=== PATIENT | male | born 1960 | race Hispanic/Latino ===

== ENCOUNTER 2018-02-24 06:26 | Day surgery (SDC) | payer MEDICARE ==
[~2018-02-24 06:26] MED LIST: ANCEF/STERILE WATER 2 GM/20 ML 2 GM/20 ML SYRINGE IV NR; LACTATED RINGERS 1,000 ML IV SCH
[2018-02-24 07:07] LABS: Basophils # (Auto) 0.1 K/mm3 (0.0-0.1); Basophils % (Auto) 0.6 % (0.0-1.8); Eosinophils # (Auto) 0.4 K/mm3 (0.0-0.4); Eosinophils % (Auto) 3.4 % (0.0-4.3); Hematocrit 43.2 % (35.5-45.6); Hemoglobin 14.5 gm/dl (11.8-15.2); Lymphocytes # (Auto) 1.4 K/mm3 (1.2-5.4); Lymphocytes % (Auto) 13.2 % (13.4-35.0); Mean Corpuscular HGB Conc 34 % (32-34); Mean Corpuscular Volume 74 fl (84-94); Monocytes # (Auto) 0.9 K/mm3 (0.0-0.8); Monocytes % (Auto) 8.6 % (0.0-7.3); Platelet Count 260 K/mm3 (140-440); Red Blood Count 5.84 M/mm3 (3.65-5.03); Red Cell Distribution Width 19.7 % (13.2-15.2)
[2018-02-24 07:11] LABS: Mean Corpuscular Hemoglobin 25 pg (28-32)
[2018-02-24 07:17] LABS: INR 3.01 (0.87-1.13)
[2018-02-24 07:18] LABS: Partial Thromboplastin Time 53.2 Sec. (24.2-36.6)
[2018-02-24] MEDS ORDERED: PERCOCET 5/325 ONE (08:02)
[2018-02-24] MEDS ORDERED: HEPARIN 10,000 UNITS/10 ML ONE (08:14)
[2018-02-24] MEDS ORDERED: XYLOCAINE 2% INFILTRATI ONE (08:14)
[2018-02-24] MEDS ORDERED: HEPARIN/NS 5000 UNIT/500ML(CATH LAB) 1,500 ML IR ONE (08:14)
[2018-02-24] MEDS ORDERED: ANCEF/STERILE WATER 2 GM/20 ML 2 GM/20 ML SYRINGE IV ONE (08:15)
[2018-02-24 08:23] LABS: BUN/Creatinine Ratio 15; Blood Urea Nitrogen 12 mg/dL (9-20); Hemolysis Index 4
[2018-02-24] MEDS ORDERED: PERCOCET 5/325 PO ONE (08:30)
[2018-02-24] MEDS ORDERED: NACL 0.9% 500 ML 500 ML ONE (09:03)
[2018-02-24] MEDS: SUBLIMAZE ONE ×2 (09:31→09:37)
[2018-02-24] MEDS: VERSED ONE ×2 (09:31→09:37)
--- NOTE | 2018-02-24 10:33 | Short Stay Summary ---
Short Stay Documentation Date of service: 02/24/18 Narrative H&P: Attached. 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 - History Principal diagnosis: Nonhealing ulcers, venous compression, post thrombotic syndrome H&P: obtained from office - Allergies and Medications Current Medications: Allergies bacitracin [From Neosporin ([id number])] Adverse Reaction (Verified 02/24/18 07:55) Hives morphine Adverse Reaction (Verified 02/24/18 07:55) Dizziness pt becomes combative neomycin [From Neosporin ([id number])] Adverse Reaction (Verified 02/24/18 07 :55) Hives polymyxin B [From Neosporin ([id number])] Adverse Reaction (Verified 07:55) Hives Home Medications Medication Instructions Recorded Confirmed Last Taken Type Aspirin [Lo-Dose Aspirin EC] 81 mg PO DAILY 02/24/18 02/24/18 02/23/18 22:00 History AtorvaSTATin [Lipitor] 40 mg PO QHS 02/24/18 02/24/18 02/23/18 22:00 History Cilostazol [Pletal] 50 mg PO BID 02/24/18 02/24/18 02/23/18 History Oxycodone HCl [Roxicodone TAB] 15 mg PO TID 02/24/18 02/24/18 02/23/18 22:00 History Sertraline [Zoloft] 50 mg PO DAILY 02/24/18 02/24/18 02/23/18 History Warfarin Sodium 10 mg PO DAILY 02/24/18 02/24/18 02/23/18 22:00 History Active Medications Cefazolin Sodium (Ancef/Sterile Water 2 Gm/20 Ml) 2 gm in 20 mls @ 80 mls/hr IV PREOP NR; Protocol Stop: 02/24/18 23:45 Last Admin: 02/24/18 09:33 Dose: 20 mls Lactated Ringer's (Lactated Ringers) 1,000 mls @ 42 mls/hr IV DIRECT LUPE - Physical exam General appearance: mild distress (bilateral foot ulcers) HEENT: EOMI Lungs: Normal air movement Heart: Regular rate Gastrointestinal: normal - Brief post op/procedure progress note Date of procedure: 02/24/18 Pre-op diagnosis: Venous compression, chronic deep venous thrombosis, nonhealing ulcers Post-op diagnosis: same Procedure: Venography of the right lower extremity Angioplasty of the right popliteal vein with a 7 mm angioplasty balloon Angioplasty of the right popliteal vein and tibioperoneal vein trunk with a 6 mm angioplasty balloon Angioplasty of the right superficial femoral vein with a 9 mm angioplasty balloon Anesthesia: local (w/ conscious sedation) Surgeon: HELENA FERGUSON Estimated blood loss: minimal Condition: stable - Hospital course Hospital course: Ready for discharge. Remove pressure dressing tomorrow am. can be discharged in 2 hrs. - Disposition Condition at discharge: Stable Disposition: [id number] TO HOME OR SELFCARE - Discharge Diagnoses (1) Post-thrombotic syndrome of right lower extremity Status: Acute (2) Compression of vein Status: Acute (3) Nonhealing ulcer of right lower extremity Status: Acute Short Stay Discharge Plan Activity: advance as tolerated (do not lift more than 10 lbs for 1 week) Weight Bearing Status: Weight Bear as Tolerated Diet: regular Wound: keep clean and dry, other (take pressure dressing off of the right groin tomorrow am) Follow up with: NICO BEST MD [Primary Care Provider] - 7 Days
--- NOTE | 2018-02-24 10:35 | Operative Report ---
Operative Report Operative Report: EXAM: 1. Ultrasound-guided access of the right superficial femoral vein, retrograde. 2. Venography of the right lower extremity and IVC. 3. Selection of the right popliteal vein. 4. Angioplasty of the right popliteal vein with a 7 mm x 200 mm angioplasty balloon. 5. Selection of the right popliteal vein and tibioperoneal trunk. 6. Angioplasty of the right popliteal vein and tibioperoneal trunk with a 6 mm x 80 mm angioplasty balloon. 7. Angioplasty of the right superficial femoral vein with a 9 mm x 60 mm angioplasty balloon. DATE: 02/24/18 ENGINE ROOM HELPER: HELENA FERGUSON MD INDICATION: D7-year-old male with nonhealing ulcer of the right lower extremity and chronic right lower extremity deep venous thrombosis and post-thrombotic syndrome with signs of possible venous compression and worsening mixed venous and arterial ulcer. MEDICATIONS: Please see nursing report for full details. DEVICES: 7 mm x 200 mm angioplasty below 9 mm x 60 mm angioplasty balloon 6 mm x 80 mm angioplasty balloon CONTRAST: 110 mL's nonionic contrast PROCEDURE: The risks, benefits, and alternatives were discussed with the patient; written informed consent was obtained. Groins were prepped and draped in a sterile fashion. Ultrasound was used to terrified a right superficial femoral vein. Right superficial femoral vein was patent. Under direct ultrasound guidance, the right superficial femoral vein was accessed with a 21-gauge micropuncture needle and a retrograde direction. 0.018 inch wire was passed into the superficial femoral vein. Transitional dilator was advanced over the wire and digital subtraction angiography was performed confirming position. 0.035 inch wire was passed into the superficial femoral vein and the transitional dilator was exchanged for a 5 Dutch sheath. Sheath was then upsized to a 7 Dutch 23 cm [place] destination. Right popliteal vein was selected and digital subtraction angiography was performed demonstrating mild intermittent narrowing of the superficial femoral vein with a web noted in the vein in the midportion. The common femoral vein was patent. The external iliac and common iliac veins were patent. IVC was patent. The right popliteal vein was moderately narrowed at the mid and upper portion and had multiple veins providing the lower portion of the popliteal vein. The largest branch to the popliteal vein provided flow into what appeared to be a branch of the right anterior tibial vein. The right anterior tibial vein was selected and visual subject angiography was performed demonstrating moderate narrowing throughout the vein. 7 mm x 200 mm angioplasty balloon that she is to perform angioplasty of the popliteal vein and into the anterior tibial vein. This is performed at low pressure for 3 minutes. Afterwards, there is extensive spasm of the vein. I injected some heparinized saline and then selected a separate branch from the right popliteal vein. This communicated with the tibioperoneal trunk. 6 mm x 80 mm angioplasty balloon was then used to perform angioplasty of the right tibial peroneal trunk and the right popliteal vein branch, both of which were severely narrowed, greater than 75%. Digital subtraction angiography afterwards demonstrated less than 40% of the narrowing and the vein was slightly spasm. Heparinized saline was injected. I then re-selected the previous branch which connected to the anterior tibial artery and the spasm was already improving. 9 mm x 60 mm angioplasty balloon was then used to perform angioplasty of the superficial femoral vein throughout its course. Digital subtraction angiography was performed demonstrating minimal residual narrowing of the lower portion of the superficial femoral vein with the web in the midportion of the vein still noted. At this point, all wires, catheters, and she's removed and pressure was held until hemostasis was achieved. Pressure bandage applied. FINDINGS: Please see procedure note above. IMPRESSION: 1. Successful angioplasty of the right popliteal vein, tibioperoneal trunk, anterior tibial vein, and superficial femoral vein.
[2018-02-24 13:13] VITALS: BP 145/58
== END 2018-02-24 13:30 | disposition home or self-care (01) ==
LOC: CATHLABREC 06:26
PROVIDERS: ATTEND Radiology Diagnostic Radiology
DX: I87.1 Compression of vein (principal); I70.233 Atherosclerosis of native arteries of right leg with ulceration of ankle; L97.919 Non-pressure chronic ulcer of unspecified part of right lower leg with unspecified severity; I25.2 Old myocardial infarction; E78.00 Pure hypercholesterolemia, unspecified; G47.30 Sleep apnea, unspecified; F32.9 Major depressive disorder, single episode, unspecified; F17.210 Nicotine dependence, cigarettes, uncomplicated; Z95.1 Presence of aortocoronary bypass graft; Z86.718 Personal history of other venous thrombosis and embolism; Z90.49 Acquired absence of other specified parts of digestive tract; Z98.890 Other specified postprocedural states; Z88.8 Allergy status to other drugs, medicaments and biological substances; Z79.82 Long term (current) use of aspirin; Z79.899 Other long term (current) drug therapy; Z79.01 Long term (current) use of anticoagulants
CPT/HCPCS: 36415; 37248; 37249; 75820; 75825; 80048; 85025; 85610; 85730; C1725; C1751; C1769; C1887; C1894; J0690; J1644; J2250; J3010; J7040; J7120; 76937; Q9967

== ENCOUNTER 2020-08-05 16:06 | Inpatient (IN) | payer MEDICARE ==
[2020-08-05 16:48] LABS: Basophils % (Auto) 0.6 % (0.0-1.8); Eosinophils # (Auto) 0.1 K/mm3 (0.0-0.4); Hematocrit 46.1 % (35.5-45.6); Hemoglobin 15.2 gm/dl (11.8-15.2); Lymphocytes # (Auto) 1.6 K/mm3 (1.2-5.4); Mean Corpuscular HGB Conc 33 % (32-34); Mean Corpuscular Volume 80 fl (84-94); Monocytes # (Auto) 0.5 K/mm3 (0.0-0.8); Monocytes % (Auto) 6.3 % (0.0-7.3); Platelet Count 336 K/mm3 (140-440); Red Blood Count 5.79 M/mm3 (3.65-5.03); Red Cell Distribution Width 17.7 % (13.2-15.2)
[2020-08-05 16:58] LABS: INR 0.94 (0.87-1.13)
[2020-08-05 16:59] LABS: Partial Thromboplastin Time 25.7 Sec. (24.2-36.6)
[2020-08-05] MEDS ORDERED: HYDROmorphone 1 MG/1 ML INJ IV ONE (17:02)
[2020-08-05] MEDS ORDERED: ONDANSETRON 4 MG/2 ML INJ IV ONE (17:02)
[2020-08-05 17:03] LABS: BUN/Creatinine Ratio 12; Blood Urea Nitrogen 11 mg/dL (9-20); Hemolysis Index 0
[2020-08-05] MEDS ORDERED: HEPARIN 10,000 UNITS/10 ML VIAL IV ONE (17:07)
--- NOTE | 2020-08-05 17:19 | Emergency Department Report ---
ED Extremity Problem HPI - General Chief complaint: Extremity Problem,Nontraumatic Stated complaint: BLOOD CLOT Time Seen by Provider: 08/05/20 16:18 Source: patient Mode of arrival: Ambulatory Limitations: No Limitations - History of Present Illness Initial comments: 60-year-old male with a past medical history of CAD with stent placement, [place], DVT, Buerger's disease, continued nicotine/tobacco use, chronic pain syndrome currently on Percocet, acute occlusion of left SFA requiring anticoagulation and thrombectomy in 2019, currently on Eliquis and Plavix presents to the hospital with complaints of arterial occlusion of left leg. Patient has been having throbbing and burning pain to his left foot for the last 3 days. He saw his vascular surgeon Dr. Sánchez in the office today. Arterial duplex was performed demonstrating thrombus extending from the origin of the superficial femoral artery distally. The profunda is patent. Patient was sent to the ER to be started on a heparin drip with plan for thrombolytic catheter placement tomorrow and potential additional revascularization on the . Patient's paperwork from Dr. Sánchez's office visits has been photocopied and placed on the chart (with patient's permission) Severity scale (0 -10): 8 - Related Data Home Medications Medication Instructions Recorded Confirmed Last Taken Sertraline [Zoloft] 50 mg PO QDAY 02/24/18 03/06/19 03/05/19 Gabapentin [Neurontin] 800 mg PO TID 03/06/19 03/06/19 Unknown Oxycodone HCl [oxyCODONE] 10 mg PO Q8H 03/06/19 03/06/19 03/05/19 fentaNYL [Duragesic] 25 mcg TD Q72H 03/06/19 03/06/19 Unknown Previous Rx's Medication Instructions Recorded Last Taken Type Apixaban [Eliquis] 5 mg PO BID #60 tablet 03/08/19 Unknown Rx Clopidogrel [Plavix] 75 mg PO QDAY #30 tablet 03/08/19 Unknown Rx Esomeprazole Magnesium [NexIUM] 40 mg PO QDAY #30 capsule. 03/08/19 Unknown Rx cilostazoL [Pletal] 100 mg PO BID #60 tablet 03/08/19 Unknown Rx Allergies Allergy/AdvReac Type Severity Reaction Status Date / Time bacitracin AdvReac Hives Verified 02/24/18 07:55 [From Neosporin ([id number])] morphine AdvReac Dizziness Verified 02/24/18 07:55 neomycin AdvReac Hives Verified 02/24/18 07:55 [From Neosporin ([id number])] polymyxin B AdvReac Hives Verified 02/24/18 07:55 [From Neosporin ([id number])] ED Review of Systems ROS: Stated complaint: BLOOD CLOT Other details as noted in HPI Comment: All other systems reviewed and negative ED Past Medical Hx - Past Medical History Previous Medical History?: Yes Hx Heart Attack/AMI: Yes (1999) Hx Deep Vein Thrombosis: Yes Hx Arthritis: No Hx HIV: No - Surgical History Past Surgical History?: Yes Hx Coronary Stent: Yes (coronary stents) Hx Cholecystectomy: Yes - Social History Smoking Status: Current Every Day Smoker - Medications Home Medications: Home Medications Medication Instructions Recorded Confirmed Last Taken Type Sertraline [Zoloft] 50 mg PO QDAY 02/24/18 03/06/19 03/05/19 History Gabapentin [Neurontin] 800 mg PO TID 03/06/19 03/06/19 Unknown History Oxycodone HCl [oxyCODONE] 10 mg PO Q8H 03/06/19 03/06/19 03/05/19 History fentaNYL [Duragesic] 25 mcg TD Q72H 03/06/19 03/06/19 Unknown History Apixaban [Eliquis] 5 mg PO BID #60 tablet 03/08/19 Unknown Rx Clopidogrel [Plavix] 75 mg PO QDAY #30 tablet 03/08/19 Unknown Rx Esomeprazole Magnesium [NexIUM] 40 mg PO QDAY #30 capsule.dr 03/08/19 Unknown Rx cilostazoL [Pletal] 100 mg PO BID #60 tablet 03/08/19 Unknown Rx ED Physical Exam - General Limitations: No Limitations - Other Other exam information: General: No acute distress Head: Atraumatic Eyes: normal appearance ENT: Moist mucous membranes Neck: Normal appearance, no midline tenderness Chest: Clear to auscultation bilaterally CV: Regular rate and rhythm Abdomen: Soft, normal bowel sounds, nontender, nondistended, no rebound or guarding Back: Normal inspection Extremity: Left foot metacarpal amputation. Warm to touch. Mild tenderness with palpation. Right lower leg with Unna boot secondary to chronic ulcer Neuro: Alert O x 3, no facial asymmetry, speech clear, no gross motor sensory deficit Psych: Appropriate behavior ED Course Vital Signs 08/05/20 08/05/20 16:13 17:12 Temperature 97.8 F 97.9 F Pulse Rate 63 65 Respiratory 20 18 Rate Blood Pressure 146/90 Blood Pressure 114/61 [Right] O2 Sat by Pulse 98 95 Oximetry - Consultations Consultation #1: 08/05/20 17:14 case d/w Dr Millan vascular surgeon. No further imaging recommended at this time. Heparin drip will be initiated patient will be admitted to hospitalist service. ED Medical Decision Making - Lab Data Result diagrams: 08/05/20 16:32 08/05/20 16:32 Lab Results 08/05/20 08/05/20 08/05/20 Range/Units 16:32 16:32 16:32 WBC 7.2 (4.5-11.0) K/mm3 RBC 5.79 H (3.65-5.03) M/mm3 Hgb 15.2 (11.8-15.2) gm/dl Hct 46.1 H (35.5-45.6) % MCV 80 L (84-94) fl MCH 26 L (28-32) pg MCHC 33 (32-34) % RDW 17.7 H (13.2-15.2) % Plt Count 336 (140-440) K/mm3 Lymph % (Auto) 22.0 (13.4-35.0) % [place] % (Auto) 6.3 (0.0-7.3) % Eos % (Auto) 1.0 (0.0-4.3) % Baso % (Auto) 0.6 (0.0-1.8) % Lymph # (Auto) 1.6 (1.2-5.4) K/mm3 [place] # (Auto) 0.5 (0.0-0.8) K/mm3 Eos # (Auto) 0.1 (0.0-0.4) K/mm3 Baso # (Auto) 0.0 (0.0-0.1) K/mm3 Seg Neutrophils % 70.1 H (40.0-70.0) % Seg Neutrophils # 5.1 (1.8-7.7) K/mm3 PT 12.4 (12.2-14.9) Sec. INR 0.94 (0.87-1.13) APTT 25.7 (24.2-36.6) Sec. Sodium 136 L (137-145) mmol/L Potassium 4.0 (3.6-5.0) mmol/L Chloride 99.7 (98-107) mmol/L Carbon Dioxide 27 (22-30) mmol/L Anion Gap 13 mmol/L BUN 11 (9-20) mg/dL Creatinine 0.9 (0.8-1.3) mg/dL Estimated GFR > 60 ml/min BUN/Creatinine Ratio 12 % Glucose 143 H (75-100) mg/dL Calcium 9.0 (8.4-10.2) mg/dL Total Creatine Kinase 29 L (55-170) units/L - Medical Decision Making 60-year-old male with a past medical of PAD with continued tobacco holiday use with chronic anticoagulation antiplatelet use presents to the hospital with ac nenana occlusion of left SFA. Patient will be admitted to the hospital for heparinization, thrombectomy, and possible revascularization as planned by vascular surgeons. Heparin drip initiated in the ED. Pain medication provided. Hospitalist to admit patient to their service with vascular consultation Critical Care Time: No Critical care attestation.: If time is entered above; I have spent that time in minutes in the direct care of this critically ill patient, excluding procedure time. ED Disposition Clinical Impression: Acute occlusion of artery of lower extremity, Nonhealing ulcer of right lower e xtremity, Nicotine dependence, Collado disease, Anticoagulant long-term use Disposition: 09 OP ADMIT IP TO THIS HOSP Is pt being admited?: Yes Condition: Stable Time of Disposition: 17:45
[2020-08-05] MEDS: HEPARIN/ 0.45% NACL DRIP 25,000 UNIT/500 ML BAG IV SCH (17:27)
--- NOTE | 2020-08-05 17:31 | History and Physical Report ---
History of Present Illness Chief complaint: My leg hurts History of present illness: 60 YO Male with CAD S/P Stent Placement, [place], DVT, Beugers Disease, Nicotine Dependence, Chronic Pain Syndrome presents, Arterial Occlusion S/P Thrombectomy presents to ED for evaluation. Pt reports "My leg hurts". Pt states that he has experienced pain in his left leg over the past 3 days with progressively worsening symptoms over the same time frame. Pt was seen and evaluated by his vascular surgeons office today. Pt was found to have rest pain. Pt underwent Arterial duplex and was found to have Left SFA occlusion. Pt transported to [facility] via private vehicle. Pt seen and evaluated in ED and found to have LLE Arterial Occlusion. Vascular surgery team notified. Pt admitted to telemetry and initiated on heparin drip. Pt denies fever, chills, CP, Palpitations, NVD, Trauma, BRBPR, Productive cough, skin rash, or recent ill contacts. Prior admission on 03/06/19 reviewed. All listed medication reconciled at time of admission. Advanced care planning conducted in ED. Past History Past Medical History: acute [place], CAD, DVT, PVD, other (see HPI) Past Surgical History: cholecystectomy, Other (Cardiac stent placement) Social history: , smoking Family history: diabetes, hypertension Medications and Allergies Allergies Allergy/AdvReac Type Severity Reaction Status Date / Time bacitracin Allergy Hives Verified 08/05/20 17:57 [From Neosporin ([id number])] neomycin Allergy Hives Verified 08/05/20 17:57 [From Neosporin ([id number])] polymyxin B Allergy Hives Verified 08/05/20 17:57 [From Neosporin ([id number])] morphine AdvReac Dizziness Verified 02/24/18 07:55 Home Medications Medication Instructions Recorded Confirmed Last Taken Type Sertraline [Zoloft] 50 mg PO QDAY 02/24/18 03/06/19 03/05/19 History Gabapentin [Neurontin] 800 mg PO TID 03/06/19 03/06/19 Unknown History Oxycodone HCl [oxyCODONE] 10 mg PO Q8H 03/06/19 03/06/19 03/05/19 History fentaNYL [Duragesic] 25 mcg TD Q72H 03/06/19 03/06/19 Unknown History Apixaban [Eliquis] 5 mg PO BID #60 tablet 03/08/19 Unknown Rx Clopidogrel [Plavix] 75 mg PO QDAY #30 tablet 03/08/19 Unknown Rx Esomeprazole Magnesium [NexIUM] 40 mg PO QDAY #30 capsule. 03/08/19 Unknown Rx cilostazoL [Pletal] 100 mg PO BID #60 tablet 03/08/19 Unknown Rx Active Meds: Active Medications Heparin Sodium/Sodium Chloride (Heparin/ 0.45% Nacl-25,000 Unit/500 Ml) 25,000 unit in 500 mls @ 29 mls/hr IV TITR LUPE; Protocol Last Admin: 08/05/20 17:27 Dose: 1,450 units/hr, 29 mls/hr Documented by: Review of Systems Constitutional: no weight loss, no weight gain Ears, nose, mouth and throat: no ear pain, no tinnitis, no decreased hearing, no nose pain, no sinus pressure Cardiovascular: no chest pain, no palpitations, no edema, no syncope, no lightheadedness Respiratory: no cough, no excessive sputum, no hemoptysis, no shortness of breath Gastrointestinal: no nausea, no vomiting, no diarrhea, no constipation, no change in bowel habits Genitourinary Male: no hematuria, no flank pain, no discharge, no urinary frequency, no nocturia, no erectile dysfunction Rectal: no pain, no incontinence Musculoskeletal: no neck pain, no arm numbness/tingling, no low back pain Integumentary: no rash, no pruritis, no sores, no wounds, no jaundice Neurological: no transient paralysis, no paralysis, no weakness, no parathesias, no tingling Psychiatric: no anxiety, no memory loss, no sleep disturbances, no hypersomnia, no change in libido, no suicidal ideation Endocrine: no cold intolerance, no polyphagia, no excessive thirst, no polydipsia, no nocturia, no excessive sweating Hematologic/Lymphatic: no easy bruising, no easy bleeding Allergic/Immunologic: no urticaria, no wheezing Exam - Constitutional Vitals: Temp Pulse Resp BP Pulse Ox 97.9 F 65 18 114/61 95 08/05/20 17:12 08/05/20 17:12 08/05/20 17:12 08/05/20 17:12 08/05/20 17:12 General appearance: Present: no acute distress, well-nourished - EENT Eyes: Present: PERRL ENT: hearing intact, clear oral mucosa - Neck Neck: Present: supple, normal ROM - Respiratory Respiratory effort: normal Respiratory: bilateral: CTA - Cardiovascular Heart Sounds: Present: S1 & S2. Absent: rub, click - Extremities Extremities: pulses symmetrical, No edema Peripheral Pulses: abnormal (Diminished LLE) - Abdominal General gastrointestinal: Present: soft, non-tender, non-distended, normal bowel sounds Male genitourinary: Present: normal - Integumentary Integumentary: Present: clear, warm, dry - Musculoskeletal Musculoskeletal: gait normal, strength equal bilaterally - Psychiatric Psychiatric: appropriate mood/affect, intact judgment & insight - Neurologic Neurologic: CNII-XII intact, moves all extremities Results - Labs CBC & Chem 7: 08/05/20 16:32 08/05/20 16:32 Labs: Abnormal lab results 08/05/20 08/05/20 Range/Units 16:32 16:32 RBC 5.79 H (3.65-5.03) M/mm3 Hct 46.1 H (35.5-45.6) % MCV 80 L (84-94) fl MCH 26 L (28-32) pg RDW 17.7 H (13.2-15.2) % Seg Neutrophils % 70.1 H (40.0-70.0) % Sodium 136 L (137-145) mmol/L Glucose 143 H (75-100) mg/dL Total Creatine Kinase 29 L (55-170) units/L Assessment and Plan - Patient Problems (1) Acute occlusion of artery of lower extremity Current Visit: No Status: Acute Plan to address problem: Arterial doppler by Vascular surgery in the office, Therapeutic anticoagulation, surgical intervention as per surgical team. (2) Collado disease Current Visit: No Status: Acute Plan to address problem: supportive care, continue medical management. (3) History of DVT (deep vein thrombosis) Current Visit: No Status: Acute Plan to address problem: Continue therapeutic anticoagulation with heparin drip, supportive care. (4) Nicotine dependence Current Visit: No Status: Acute Qualifiers: Nicotine product type: cigarettes Substance use status: in withdrawal Qualified Code(s): F17.213 - Nicotine dependence, cigarettes, with withdrawal Plan to address problem: Smoking cessation counseling, supportive care, behavior change counseling, +15 minutes. (5) DVT prophylaxis Current Visit: No Status: Acute Plan to address problem: SCD to bilateral lower extremities while in bed, continue therapeutic anticoagulation. (6) Advance care planning Current Visit: Yes Status: Acute Plan to address problem: Disease education conducted, care plan discussed, diagnosis discussed, prognosis discussed, patient knowledges understanding and agreement with care plan, +30 minutes.
[2020-08-05] MEDS ORDERED: ONDANSETRON 4 MG/2 ML INJ IV PRN (17:46)
[2020-08-05] MEDS ORDERED: ACETAMINOPHEN 325 MG TAB PO PRN (17:46)
[2020-08-05] MEDS ORDERED: ALBUTEROL 2.5 MG/3 ML NEBU IH PRN (17:46)
[2020-08-05] MEDS ORDERED: HEPARIN/ 0.45% NACL DRIP 25,000 UNIT/500 ML BAG IV SCH (18:00)
[2020-08-05] MEDS ORDERED: NON-FORMULARY EACH (Oxycodone Hcl [Oxycodone] 10 MG Tablet) PO SCH (19:30)
[2020-08-05] MEDS ORDERED: NON-FORMULARY EACH (Gabapentin [Neurontin] 800 MG Tablet) PO SCH (20:00)
[2020-08-05] MEDS: oxyCODONE 5 MG TAB PO SCH (20:30)
[2020-08-05] MEDS: GABAPENTIN 400 MG CAP PO SCH (20:30)
[2020-08-05] MEDS: fentaNYL 25 MCG/HR PATCH 72HR TD SCH (20:35)
[2020-08-05] MEDS: CILOSTAZOL 100 MG TAB PO SCH (22:45)
[2020-08-06] MEDS ORDERED: HYDROmorphone 1 MG/1 ML INJ IV ONE (01:48)
[2020-08-06 05:22] LABS: Basophils % (Auto) 0.5 % (0.0-1.8); Eosinophils # (Auto) 0.2 K/mm3 (0.0-0.4); Eosinophils % (Auto) 2.3 % (0.0-4.3); Hemoglobin 14.2 gm/dl (11.8-15.2); Lymphocytes # (Auto) 2.3 K/mm3 (1.2-5.4); Lymphocytes % (Auto) 33.5 % (13.4-35.0); Mean Corpuscular HGB Conc 33 % (32-34); Mean Corpuscular Volume 80 fl (84-94); Monocytes # (Auto) 0.6 K/mm3 (0.0-0.8); Monocytes % (Auto) 8.1 % (0.0-7.3); Platelet Count 297 K/mm3 (140-440); Red Blood Count 5.38 M/mm3 (3.65-5.03); Red Cell Distribution Width 17.2 % (13.2-15.2)
[2020-08-06 05:29] LABS: BUN/Creatinine Ratio 13; Blood Urea Nitrogen 13 mg/dL (9-20); Calcium 8.6 mg/dL (8.4-10.2); Hemolysis Index 6
[2020-08-06] MEDS: oxyCODONE 5 MG TAB PO SCH ×3 (06:50→20:49)
[2020-08-06] MEDS ORDERED: HYDROmorphone 2 MG/1 ML INJ IV SCH (08:34)
[2020-08-06] MEDS: GABAPENTIN 400 MG CAP PO SCH ×3 (08:45→19:52)
[2020-08-06] MEDS ORDERED: NON-FORMULARY EACH (Esomeprazole Magnesium [Nexium] 40 MG Capsule.Dr) PO SCH (10:00)
[2020-08-06] MEDS: CILOSTAZOL 100 MG TAB PO SCH ×2 (10:00→21:49)
--- NOTE | 2020-08-06 11:03 | Progress Note ---
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 --History of DVT (deep vein thrombosis) Current Visit: No Status: Acute Plan to address problem: Continue therapeutic anticoagulation with heparin drip, supportive care. --Nicotine dependence Current Visit: No Status: Acute Plan to address problem: Smoking cessation counseling, supportive care, behavior change counseling, +15 minutes. --DVT prophylaxis Current Visit: No Status: Acute Plan to address problem: SCD to bilateral lower extremities while in bed, continue therapeutic anticoagulation. --Advance care planning Current Visit: Yes Status: Acute Plan to address problem: Full CODE STATUS, plan of care discussed in detail with the patient Closely monitor the patient and adjust management as needed Plan of care discussed with the patient's nurse and case home management supervisor recommendations noted and appreciated History Interval history: I have seen and examined the patient at the bedside Patient's chart and medications reviewed Patient with left saphenous artery occlusion Evaluated by vascular, and events revascularization Patient feels slightly better Vital signs noted Hospitalist Physical - Constitutional Vitals: Temp Pulse Resp BP Pulse Ox 98.1 F 75 18 102/59 93 08/06/20 07:26 08/06/20 07:26 08/06/20 07:26 08/06/20 08:39 08/06/20 07:26 General appearance: Present: no acute distress, well-nourished - EENT Eyes: Present: PERRL, EOM intact - Neck Neck: Present: supple, normal ROM - Respiratory Respiratory effort: normal Respiratory: bilateral: diminished, negative: rales, rhonchi, wheezing - Cardiovascular Rhythm: regular Heart Sounds: Present: S1 & S2 - Extremities Extremities: No edema, normal temperature - Abdominal General gastrointestinal: soft, non-tender, non-distended, normal bowel sounds - Integumentary Integumentary: Present: clear, warm - Psychiatric Psychiatric: appropriate mood/affect, cooperative - Neurologic Neurologic: CNII-XII intact, moves all extremities Results - Labs CBC & Chem 7: 08/06/20 14:30 08/06/20 14:30 Labs: Laboratory Last Values WBC 6.9 K/mm3 (4.5-11.0) 08/06/20 04:50 RBC 5.38 M/mm3 (3.65-5.03) H 08/06/20 04:50 Hgb 14.2 gm/dl (11.8-15.2) 08/06/20 04:50 Hct 43.0 % (35.5-45.6) 08/06/20 04:50 MCV 80 fl (84-94) L 08/06/20 04:50 MCH 27 pg (28-32) L 08/06/20 04:50 MCHC 33 % (32-34) 08/06/20 04:50 RDW 17.2 % (13.2-15.2) H 08/06/20 04:50 Plt Count 297 K/mm3 (140-440) 08/06/20 04:50 Lymph % (Auto) 33.5 % (13.4-35.0) 08/06/20 04:50 [place] % (Auto) 8.1 % (0.0-7.3) H 08/06/20 04:50 Eos % (Auto) 2.3 % (0.0-4.3) 08/06/20 04:50 Baso % (Auto) 0.5 % (0.0-1.8) 08/06/20 04:50 Lymph # (Auto) 2.3 K/mm3 (1.2-5.4) 08/06/20 04:50 [place] # (Auto) 0.6 K/mm3 (0.0-0.8) 08/06/20 04:50 Eos # (Auto) 0.2 K/mm3 (0.0-0.4) 08/06/20 04:50 Baso # (Auto) 0.0 K/mm3 (0.0-0.1) 08/06/20 04:50 Seg Neutrophils % 55.6 % (40.0-70.0) 08/06/20 04:50 Seg Neutrophils # 3.8 K/mm3 (1.8-7.7) 08/06/20 04:50 PT 12.4 Sec. (12.2-14.9) 08/05/20 16:32 INR 0.94 (0.87-1.13) 08/05/20 16:32 APTT 25.7 Sec. (24.2-36.6) 08/05/20 16:32 Heparin Anti-Xa Level 0.53 U.I./ml (0.3-0.7) 08/05/20 23:35 Sodium 138 mmol/L (137-145) 08/06/20 04:50 Potassium 3.9 mmol/L (3.6-5.0) 08/06/20 04:50 Chloride 100.8 mmol/L (98-107) 08/06/20 04:50 Carbon Dioxide 29 mmol/L (22-30) 08/06/20 04:50 Anion Gap 12 mmol/L 08/06/20 04:50 BUN 13 mg/dL (9-20) 08/06/20 04:50 Creatinine 1.0 mg/dL (0.8-1.3) 08/06/20 04:50 Estimated GFR > 60 ml/min 08/06/20 04:50 BUN/Creatinine Ratio 13 % 08/06/20 04:50 Glucose 95 mg/dL (75-100) 08/06/20 04:50 Calcium 8.6 mg/dL (8.4-10.2) 08/06/20 04:50 Total Creatine Kinase 29 units/L (55-170) L 08/05/20 16:32 Lopez/IV: Voiding Method Urinal Active Medications - Current Medications Current Medications: Generic Name Dose Route Start Last Admin Trade Name Freq PRN Reason Stop Dose Admin Acetaminophen 650 mg 08/05/20 17:46 Acetaminophen 325 Mg Tab PO Q4H PRN Pain MILD(1-3)/Fever >100.5/CRYSTAL Albuterol 2.5 mg 08/05/20 17:46 Albuterol 2.5 Mg/3 Ml Nebu IH Q4HRT PRN Shortness Of Breath Cilostazol 100 mg 08/05/20 22:00 08/05/20 22:45 Cilostazol 100 Mg Tab PO 100 mg BID LUPE Administration Fentanyl 25 mcg 08/05/20 20:00 08/05/20 20:35 Fentanyl 25 Mcg/Hr Patch 72hr TD 25 mcg Q72H LUPE Administration Gabapentin 800 mg 08/05/20 20:00 08/06/20 08:45 Gabapentin 400 Mg Cap PO 800 mg TID LUPE Administration Heparin Sodium/Sodium Chloride 25,000 unit in 500 mls @ 29 mls/hr 08/05/20 17:23 08/05/20 17:27 Heparin/ 0.45% Nacl-25,000 Unit/500 Ml IV 1,450 units/hr TITR LUPE 29 mls/hr Administration Protocol 1,450 UNITS/HR Ondansetron HCl 4 mg 08/05/20 17:46 Ondansetron 4 Mg/2 Ml Inj IV Q8H PRN Nausea And Vomiting Oxycodone HCl 10 mg 08/05/20 20:00 08/06/20 06:50 Oxycodone 5 Mg Tab PO 10 mg Q8H LUPE Administration Pantoprazole Sodium 40 mg 08/06/20 10:00 Pantoprazole 40 Mg Tab PO DAILY LUPE Sertraline HCl 50 mg 08/06/20 10:00 Sertraline 50 Mg Tab PO QDAY LUPE Sodium Chloride 10 ml 08/05/20 22:00 08/05/20 22:45 Sodium Chloride 0.9% 10 Ml Flush Syringe IV 10 ml BID LUPE Administration Sodium Chloride 10 ml 08/05/20 17:46 Sodium Chloride 0.9% 10 Ml Flush Syringe IV PRN PRN LINE FLUSH
[2020-08-06] MEDS: HEPARIN/ 0.45% NACL DRIP 25,000 UNIT/500 ML BAG IV SCH (11:41)
[2020-08-06] MEDS ORDERED: HYDROmorphone 1 MG/1 ML INJ IV NR (13:28)
[2020-08-06] MEDS ORDERED: HYDROmorphone 1 MG/1 ML INJ ONE ×2 (13:29→14:39)
[2020-08-06] MEDS ORDERED: SODIUM CHLORIDE 0.9% 1000 ML 1,000 ML SHEATH SCH (13:30)
[2020-08-06] MEDS ORDERED: SODIUM CHLORIDE 0.9% 1000 ML 1,000 ML IV SCH (13:30)
[2020-08-06] MEDS ORDERED: SODIUM CHLORIDE 0.9% 1000 ML 1,000 ML EKOSCLUMEN SCH (13:30)
--- NOTE | 2020-08-06 13:30 | Consultation ---
History of Present Illness - Reason for Consult Consult date: 08/06/20 Cold left leg Requesting physician: RASTA FERGUSON - History of Present Illness 60-year-old male with coronary artery disease status post stent placement for myocardial infarction, history of DVT, Buerger's disease with continued nicotine abuse, and chronic pain with history of left lower extremity arterial thrombosis status post thrombolysis and thrombectomy in 2019 who now presents with left lo wer extremity pain for the last 3 days. 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 Sensory function is minimally affected. [place] 2A. Patient was seen in the office and found to have an arterial occlusion of the left lower extremity. Patient has been compliant with his medication. Pt denies fever, chills, CP, Palpitations, NVD, Trauma, BRBPR, Productive cough, skin rash, or recent ill contacts. Past History Past Medical History: acute [place], CAD, DVT, PVD, other (see HPI) Past Surgical History: cholecystectomy, Other (Cardiac stent placement) Social history: , smoking Family history: diabetes, hypertension Medications and Allergies Allergies Allergy/AdvReac Type Severity Reaction Status Date / Time bacitracin Allergy Hives Verified 08/05/20 17:57 [From Neosporin ([id number])] neomycin Allergy Hives Verified 08/05/20 17:57 [From Neosporin ([id number])] polymyxin B Allergy Hives Verified 08/05/20 17:57 [From Neosporin ([id number])] morphine AdvReac Dizziness Verified 02/24/18 07:55 Home Medications Medication Instructions Recorded Confirmed Last Taken Type Sertraline [Zoloft] 50 mg PO QDAY 02/24/18 08/06/20 03/05/19 History Gabapentin [Neurontin] 800 mg PO TID 03/06/19 08/06/20 Unknown History Oxycodone HCl [oxyCODONE] 10 mg PO Q8H 03/06/19 08/06/20 03/05/19 History fentaNYL [Duragesic] 25 mcg TD Q72H 03/06/19 08/06/20 Unknown History Apixaban [Eliquis] 5 mg PO BID #60 tablet 03/08/19 08/06/20 Unknown Rx Clopidogrel [Plavix] 75 mg PO QDAY #30 tablet 03/08/19 08/06/20 Unknown Rx Esomeprazole Magnesium [NexIUM] 40 mg PO QDAY #30 capsule. 03/08/19 08/06/20 Unknown Rx cilostazoL [Pletal] 100 mg PO BID #60 tablet 03/08/19 08/06/20 Unknown Rx Active Meds: Active Medications Acetaminophen (Acetaminophen 325 Mg Tab) 650 mg PO Q4H PRN PRN Reason: Pain MILD(1-3)/Fever >100.5/CRYSTAL Albuterol (Albuterol 2.5 Mg/3 Ml Nebu) 2.5 mg IH Q4HRT PRN PRN Reason: Shortness Of Breath Cilostazol (Cilostazol 100 Mg Tab) 100 mg PO BID [facility] Last Admin: 08/05/20 22:45 Dose: 100 mg Documented by: Fentanyl (Fentanyl 25 Mcg/Hr Patch 72hr) 25 mcg TD Q72H [facility] Last Admin: 08/05/20 20:35 Dose: 25 mcg Documented by: Gabapentin (Gabapentin 400 Mg Cap) 800 mg PO TID [facility] Last Admin: 08/06/20 08:45 Dose: 800 mg Documented by: Hydromorphone HCl (Hydromorphone 1 Mg/1 Ml Inj) 1 mg IV ONCE ONE Stop: 08/06/20 13:29 Heparin Sodium/Sodium Chloride (Heparin/ 0.45% Nacl-25,000 Unit/500 Ml) 25,000 unit in 500 mls @ 29 mls/hr IV TITR [facility]; Protocol Last Admin: 08/06/20 11:41 Dose: 1,450 units/hr, 29 mls/hr Documented by: Sodium Chloride (Nacl 0.9% 500 Ml) 500 mls @ 50 mls/hr IV DIRECT LUPE Ondansetron HCl (Ondansetron 4 Mg/2 Ml Inj) 4 mg IV Q8H PRN PRN Reason: Nausea And Vomiting Oxycodone HCl (Oxycodone 5 Mg Tab) 10 mg PO Q8H [facility] Last Admin: 08/06/20 06:50 Dose: 10 mg Documented by: Pantoprazole Sodium (Pantoprazole 40 Mg Tab) 40 mg PO DAILY [facility] Sertraline HCl (Sertraline 50 Mg Tab) 50 mg PO QDAY [facility] Sodium Chloride (Sodium Chloride 0.9% 10 Ml Flush Syringe) 10 ml IV BID [facility] Last Admin: 08/06/20 11:43 Dose: 10 ml Documented by: Sodium Chloride (Sodium Chloride 0.9% 10 Ml Flush Syringe) 10 ml IV PRN PRN PRN Reason: LINE FLUSH Review of Systems All systems: negative (see HPI) Exam - Constitutional Vitals: Temp Pulse Resp BP Pulse Ox 98.1 F 75 18 102/59 93 08/06/20 07:26 08/06/20 07:26 08/06/20 07:26 08/06/20 08:39 08/06/20 07:26 General appearance: Present: mild distress (Left foot pain) - EENT Eyes: Present: EOM intact ENT: hearing intact - Neck Neck: Present: supple - Respiratory Respiratory effort: normal - Extremities Extremities: abnormal (Left foot has had an old TMA. The old amputation TMA site appears cool and is slightly mottled. The rest of the leg is warm. Patient has pain at the TMA site. No motor dysfunction. Minimal decrease in sensation of the TMA site. Right ankle has a chronic wound, but is warm and well perfused.) - Abdominal General gastrointestinal: Present: soft, non-tender - Psychiatric Psychiatric: appropriate mood/affect, cooperative Results - Labs CBC & Chem 7: 08/06/20 04:50 08/06/20 04:50 Labs: Abnormal lab results 08/05/20 08/05/20 08/06/20 Range/Units 16:32 16:32 04:50 RBC 5.79 H 5.38 H (3.65-5.03) M/mm3 Hct 46.1 H (35.5-45.6) % MCV 80 L 80 L (84-94) fl MCH 26 L 27 L (28-32) pg RDW 17.7 H 17.2 H (13.2-15.2) % [place] % (Auto) 8.1 H (0.0-7.3) % Seg Neutrophils % 70.1 H (40.0-70.0) % Sodium 136 L (137-145) mmol/L Glucose 143 H (75-100) mg/dL Total Creatine Kinase 29 L (55-170) units/L Assessment and Plan 60-year-old male with history of acute limb ischemia of the left lower extremity secondary to Buerger's with continued tobacco abuse who continues to smoke and now has developed acute limb ischemia of the left lower extremity, again. Last episode was in 2019. Discussed with patient that his continued smoking places him at high risk for limb loss whether or not thrombolysis/thrombectomy will be successful. Discussed catheter directed thrombolysis of the left lower extremity. Discussed subsequent thrombectomy. Discussed risks, benefits, and alternatives. Patient agrees with procedure. Plan for thrombolysis with return to [facility] tomorrow for possible further revascularization as needed.
[2020-08-06] MEDS ORDERED: ONDANSETRON 4 MG/2 ML INJ IV PRN (13:34)
[2020-08-06] MEDS ORDERED: ALTEPLASE 20 MG in SODIUM CHLORIDE 0.9% 500 ML 500 ML EKOSDLUMEN STA (13:37)
[2020-08-06] MEDS ORDERED: HEPARIN/NS 5000 UNIT/500ML 1,000 ML IR ONE (13:40)
[2020-08-06] MEDS ORDERED: LIDOCAINE 2%/EPINEPHRINE 1:100,000 VIAL (20 ML) INFILTRATI ONE (14:00)
[2020-08-06] MEDS ORDERED: SODIUM CHLORIDE 0.9% 500 ML 500 ML IV SCH (14:00)
[2020-08-06] MEDS ORDERED: HEPARIN/ 0.45% NACL DRIP 25,000 UNIT/500 ML BAG SHEATH SCH (14:00)
[2020-08-06] MEDS: fentaNYL 100 MCG/2 ML INJ ONE ×2 (14:19→14:32)
[2020-08-06] MEDS: MIDAZOLAM 2 MG/2 ML INJ ONE ×2 (14:20→15:55)
[2020-08-06] MEDS ORDERED: HEPARIN 10,000 UNITS/10 ML VIAL ONE (14:20)
[2020-08-06] MEDS ORDERED: WATER FOR INJ Sterile (PF) 10 ML ONE (14:20)
[2020-08-06] MEDS ORDERED: ALTEPLASE 2 MG INJ ONE ×2 (14:20→14:56)
[2020-08-06] MEDS ORDERED: LIDOCAINE (2%) 20 MG/1 ML VIAL 20 ML MDV INFILTRATI ONE (14:21)
[2020-08-06] MEDS ORDERED: ceFAZolin/Water 2 GM/20 ML 2 GM/20 ML SYRINGE IV ONE (14:34)
[2020-08-06] MEDS ORDERED: VERAPAMIL 5 MG/2 ML INJ ONE (14:54)
[2020-08-06] MEDS ORDERED: SODIUM CHLORIDE 0.9% 1000 ML 1,000 ML ONE (15:04)
--- NOTE | 2020-08-06 15:48 | Operative Report ---
Operative Report Operative Report: EXAM: 1. Ultrasound-guided access of the right common femoral artery. 2. Angiography of the right lower extremity. 3. Selection of the abdominal aorta with angiography. 4. Selection of the left external iliac artery, and profunda femoral artery with angiography of the left lower extremity. 5. Selection of the left superficial femoral artery, popliteal artery, and peroneal artery with angiography of the left lower extremity. 6. Infusion of 2 mg of TPA through the peroneal artery and 5 mg of verapamil through the peroneal artery. 7. Fluoroscopic guided placement of a EKOS 6 Fr x 50 cm thrombolysis catheter across the left superficial femoral artery, popliteal artery, and proximal peroneal artery. DATE: 08/06/2020 [employer]IN[employer] POULTRY: HELENA FERGUSON MD INDICATION: Acute limb ischemia of the left lower extremity, [place] 2A. MEDICATIONS: Please see nursing report for full details. DEVICES: 6 Fr x 50 cm EKOSthrombolysis catheter 6 mg of tPA CONTRAST: Please see catheter report for full details. PROCEDURE: The risks, benefits, and alternatives were discussed with the patient; written informed consent was obtained. Patient was brought to the room on an active heparin drip. The groins were prepped and draped in a sterile fashion. Ultrasound was used to evaluate the right common femoral artery. Under direct ultrasound guidance, the right common femoral artery was accessed with a 21-gauge micropuncture needle. 0.018 inch wire was passed into the aorta. Needle was exchanged for t ransitional dilator. Wire was exchanged for 0.035 inch wire. Transitional dilator was exchanged for 5 [place] sheath. Digital subtraction angiography was performed demonstrating patency of the right superficial femoral artery, profundofemoral artery, and common femoral artery. The puncture was appropriate, above the bifurcation and below the inferior epigastric artery. The abdominal aorta was selected and digital subtraction angiography was performed. The left external iliac artery and profunda femoral artery was selected and digital subtraction angiography was performed. The infrarenal abdominal aorta, bilateral common iliac arteries, bilateral external iliac arteries, and bilateral internal iliac arteries are patent. The left common femoral artery and profunda femoral artery are patent. There is occlusion of the left superficial femoral artery, popliteal artery, and proximal peroneal artery. There is no other runoff to the left lower extremity based on previous angiograms. The peroneal artery reconstitutes at its midportion with poor outflow due to underlying Buerger's. After reviewing the diagnostic imaging, I determined the patient required intervention. The patient was further heparinized. 6 [place] 45 cm [employer] destination was positioned in the left common femoral artery. Angled catheter and 0.035 inch wire were then passed through the left superficial femoral artery, popliteal artery, and into the peroneal artery. The left peroneal artery was selected and digital subtraction angiography was performed demonstrating spasm of the vessel with poor outflow and possible small amounts of thrombus in the outflow vessels. I injected 2 mg of TPA and 5 mg of verapamil. Afterwards, over a 0.035 inch wire, a 6 [place] 50 cm EKOS catheter was advanced over the wire and positioned in the left superficial femoral artery ostium and distally in the proximal peroneal artery. Afterwards, the catheter was then primed with 4 mg of TPA, the sheath was primed with 2000 units of heparin, and the catheter was secured with 2-0 Ethilon, pressure dressing, and numerous Steri-Strips. The patient tolerated the procedure well. No immediate postprocedural complication. FINDINGS: Please see procedure note above IMPRESSION: Successful thrombolytic catheter placement in the left lower extremity as described above.
[2020-08-06] MEDS: SERTRALINE 50 MG TAB PO SCH (15:54)
[2020-08-06] MEDS: PANTOPRAZOLE 40 MG TAB PO SCH (15:54)
[2020-08-06] MEDS: HYDROmorphone 1 MG/1 ML INJ IV PRN ×5 (16:15→23:39)
[2020-08-06 16:16] LABS: Basophils % (Auto) 0.5 % (0.0-1.8); Eosinophils # (Auto) 0.1 K/mm3 (0.0-0.4); Hematocrit 42.8 % (35.5-45.6); Lymphocytes # (Auto) 2.1 K/mm3 (1.2-5.4); Lymphocytes % (Auto) 31.2 % (13.4-35.0); Mean Corpuscular HGB Conc 33 % (32-34); Mean Corpuscular Volume 79 fl (84-94); Monocytes # (Auto) 0.5 K/mm3 (0.0-0.8); Monocytes % (Auto) 8.1 % (0.0-7.3); Platelet Count 293 K/mm3 (140-440); Red Blood Count 5.38 M/mm3 (3.65-5.03); Red Cell Distribution Width 17.5 % (13.2-15.2)
[2020-08-06 16:27] LABS: INR 0.92 (0.87-1.13)
[2020-08-06 16:28] LABS: Partial Thromboplastin Time 27.4 Sec. (24.2-36.6)
[2020-08-06 16:34] LABS: BUN/Creatinine Ratio 13; Blood Urea Nitrogen 13 mg/dL (9-20); Calcium 8.3 mg/dL (8.4-10.2); Hemolysis Index 3
[2020-08-06 18:50] LABS: Basophils # (Auto) 0.1 K/mm3 (0.0-0.1); Basophils % (Auto) 0.9 % (0.0-1.8); Eosinophils # (Auto) 0.1 K/mm3 (0.0-0.4); Eosinophils % (Auto) 0.9 % (0.0-4.3); Hematocrit 44.2 % (35.5-45.6); Hemoglobin 14.3 gm/dl (11.8-15.2); Lymphocytes # (Auto) 1.4 K/mm3 (1.2-5.4); Lymphocytes % (Auto) 13.8 % (13.4-35.0); Mean Corpuscular HGB Conc 33 % (32-34); Mean Corpuscular Volume 81 fl (84-94); Monocytes # (Auto) 0.7 K/mm3 (0.0-0.8); Monocytes % (Auto) 7.2 % (0.0-7.3); Platelet Count 263 K/mm3 (140-440); Red Blood Count 5.48 M/mm3 (3.65-5.03); Red Cell Distribution Width 17.6 % (13.2-15.2)
[2020-08-07 01:15] LABS: Basophils % (Auto) 0.4 % (0.0-1.8); Eosinophils % (Auto) 0.4 % (0.0-4.3); Hematocrit 43.1 % (35.5-45.6); Hemoglobin 14.1 gm/dl (11.8-15.2); Lymphocytes # (Auto) 1.3 K/mm3 (1.2-5.4); Lymphocytes % (Auto) 14.7 % (13.4-35.0); Mean Corpuscular HGB Conc 33 % (32-34); Mean Corpuscular Volume 80 fl (84-94); Monocytes # (Auto) 0.9 K/mm3 (0.0-0.8); Monocytes % (Auto) 10.2 % (0.0-7.3); Platelet Count 229 K/mm3 (140-440); Red Blood Count 5.37 M/mm3 (3.65-5.03); Red Cell Distribution Width 17.3 % (13.2-15.2)
[2020-08-07 01:29] LABS: Fibrinogen 113 mg/dl (211-480)
[2020-08-07] MEDS: HYDROmorphone 1 MG/1 ML INJ IV PRN ×9 (02:15→22:40)
[2020-08-07] MEDS: oxyCODONE 5 MG TAB PO SCH ×3 (04:21→20:15)
[2020-08-07 05:47] LABS: Basophils # (Auto) 0.1 K/mm3 (0.0-0.1); Eosinophils % (Auto) 0.5 % (0.0-4.3); Hematocrit 42.7 % (35.5-45.6); Lymphocytes # (Auto) 1.7 K/mm3 (1.2-5.4); Lymphocytes % (Auto) 21.3 % (13.4-35.0); Mean Corpuscular HGB Conc 33 % (32-34); Mean Corpuscular Volume 81 fl (84-94); Monocytes % (Auto) 12.9 % (0.0-7.3); Platelet Count 203 K/mm3 (140-440); Red Blood Count 5.29 M/mm3 (3.65-5.03); Red Cell Distribution Width 17.3 % (13.2-15.2)
[2020-08-07 06:05] LABS: BUN/Creatinine Ratio 14; Blood Urea Nitrogen 15 mg/dL (9-20); Calcium 8.7 mg/dL (8.4-10.2); Hemolysis Index 2
[2020-08-07 06:37] LABS: Fibrinogen 78 mg/dl (211-480)
[2020-08-07] MEDS: GABAPENTIN 400 MG CAP PO SCH ×3 (07:44→20:15)
--- NOTE | 2020-08-07 09:02 | Event Note ---
Date: 08/07/20 Patient with FIbrinogen drop to 78 this morning. Patient was evaluated and there are no signs of active bleeding. Left disatl calf and foot are mottled. Will stop the TPA drip and infuse saline. Will take him to the cathlab now for his procedure as well as placing STAT order for 20 Units of Cryoprecipitate to be transfused prior to the completion of the case and closure of the artery.
[2020-08-07] MEDS ORDERED: HEPARIN/NS 5000 UNIT/500ML 500 ML IR ONE ×2 (09:19→10:17)
--- NOTE | 2020-08-07 09:49 | Progress Note ---
Assessment and Plan Assessment and plan: -- Acute occlusion of artery of lower extremity Current Visit: No Status: Acute Plan to address problem: Saphenous artery , evaluated by vascular , s/p revascularization procedures 08/06/2020 EKOS thrombolysis catheter placement Patient has drop in fibrinogen, 78, this morning, vascular discontinued TPA drip Advised cryoprecipitate, stat [employer] Assistant procedure for removal of EKOS thrombolysis catheter. --History of DVT (deep vein thrombosis) Current Visit: No Status: Acute Plan to address problem: Continue therapeutic anticoagulation with heparin drip, supportive care. --Nicotine dependence Current Visit: No Status: Acute Plan to address problem: Smoking cessation counseling, supportive care, behavior change counseling, +15 m inutes. --DVT prophylaxis Current Visit: No Status: Acute Plan to address problem: SCD to bilateral lower extremities while in bed, continue therapeutic anticoagulation. --Advance care planning Current Visit: Yes Status: Acute Plan to address problem: Full CODE STATUS, plan of care discussed in detail with the patient Closely monitor the patient and adjust management as needed Plan of care discussed with the patient's nurse and case management Closely monitor the patient and adjust management as needed The high probability of a clinically significant, sudden or life threatening deterioration of the [Vascular, hematology] system(s) required my full and direct attention, intervention and personal management. The aggregate critical care time was [35] minutes. This time is in addition to time spent performing reported procedures but includes the following: [x] Data Review and interpretation [x] Patient assessment and monitoring of vital signs [x] Documentation [x] Medication orders and management History Interval history: I have seen and examined the patient at the bedside Patient's chart and medications reviewed Patient had significant drop in fibrinogen Vascular scheduled for EKOS thrombolysis catheter removal And thrombectomy another vascular procedures today Vital signs noted Hospitalist Physical - Constitutional Vitals: Temp Pulse Resp BP Pulse Ox 98.4 F 76 13 114/64 88 08/07/20 08:00 08/07/20 06:30 08/07/20 06:30 08/07/20 06:30 08/07/20 06:30 General appearance: Present: no acute distress, well-nourished - EENT Eyes: Present: PERRL, EOM intact - Neck Neck: Present: supple, normal ROM - Respiratory Respiratory effort: normal Respiratory: bilateral: diminished, negative: rales, rhonchi, wheezing - Cardiovascular Rhythm: regular Heart Sounds: Present: S1 & S2 - Extremities Extremities: abnormal (Surgical dressing in place) - Abdominal General gastrointestinal: soft, non-tender, non-distended, normal bowel sounds - Integumentary Integumentary: Present: clear, warm - Psychiatric Psychiatric: appropriate mood/affect, cooperative - Neurologic Neurologic: moves all extremities Results - Labs CBC & Chem 7: 08/07/20 16:00 08/07/20 05:33 Labs: Laboratory Last Values WBC 8.0 K/mm3 (4.5-11.0) 08/07/20 05:33 RBC 5.29 M/mm3 (3.65-5.03) H 08/07/20 05:33 Hgb 14.0 gm/dl (11.8-15.2) 08/07/20 05:33 Hct 42.7 % (35.5-45.6) 08/07/20 05:33 MCV 81 fl (84-94) L 08/07/20 05:33 MCH 26 pg (28-32) L 08/07/20 05:33 MCHC 33 % (32-34) 08/07/20 05:33 RDW 17.3 % (13.2-15.2) H 08/07/20 05:33 Plt Count 203 K/mm3 (140-440) 08/07/20 05:33 Lymph % (Auto) 21.3 % (13.4-35.0) 08/07/20 05:33 [place] % (Auto) 12.9 % (0.0-7.3) H 08/07/20 05:33 Eos % (Auto) 0.5 % (0.0-4.3) 08/07/20 05:33 Baso % (Auto) 1.0 % (0.0-1.8) 08/07/20 05:33 Lymph # (Auto) 1.7 K/mm3 (1.2-5.4) 08/07/20 05:33 [place] # (Auto) 1.0 K/mm3 (0.0-0.8) H 08/07/20 05:33 Eos # (Auto) 0.0 K/mm3 (0.0-0.4) 08/07/20 05:33 Baso # (Auto) 0.1 K/mm3 (0.0-0.1) 08/07/20 05:33 Seg Neutrophils % 64.3 % (40.0-70.0) 08/07/20 05:33 Seg Neutrophils # 5.2 K/mm3 (1.8-7.7) 08/07/20 05:33 PT 12.2 Sec. (12.2-14.9) 08/06/20 14:30 INR 0.92 (0.87-1.13) 08/06/20 14:30 APTT 27.4 Sec. (24.2-36.6) 08/06/20 14:30 Fibrinogen 78 mg/dl (211-480) L* 08/07/20 05:33 Heparin Anti-Xa Level < 0.10 U.I./ml (0.3-0.7) L 08/07/20 05:33 Sodium 139 mmol/L (137-145) 08/07/20 05:33 Potassium 4.2 mmol/L (3.6-5.0) 08/07/20 05:33 Chloride 102.0 mmol/L (98-107) 08/07/20 05:33 Carbon Dioxide 28 mmol/L (22-30) 08/07/20 05:33 Anion Gap 13 mmol/L 08/07/20 05:33 BUN 15 mg/dL (9-20) 08/07/20 05:33 Creatinine 1.1 mg/dL (0.8-1.3) 08/07/20 05:33 Estimated GFR > 60 ml/min 08/07/20 05:33 BUN/Creatinine Ratio 14 % 08/07/20 05:33 Glucose 89 mg/dL (75-100) 08/07/20 05:33 POC Glucose 89 mg/dL (70-105) 08/07/20 05:36 Calcium 8.7 mg/dL (8.4-10.2) 08/07/20 05:33 Total Creatine Kinase 29 units/L (55-170) L 08/05/20 16:32 Blood Type B POSITIVE 08/06/20 14:30 Antibody Screen Negative 08/06/20 14:30 Lopez/IV: Voiding Method Urinal Active Medications - Current Medications Current Medications: Generic Name Dose Route Start Last Admin Trade Name Freq PRN Reason Stop Dose Admin Acetaminophen 650 mg 08/05/20 17:46 Acetaminophen 325 Mg Tab PO Q4H PRN Pain MILD(1-3)/Fever >100.5/CRYSTAL Albuterol 2.5 mg 08/05/20 17:46 Albuterol 2.5 Mg/3 Ml Nebu IH Q4HRT PRN Shortness Of Breath Cilostazol 100 mg 08/05/20 22:00 08/06/20 21:49 Cilostazol 100 Mg Tab PO 100 mg BID LUPE Administration Fentanyl 25 mcg 08/05/20 20:00 08/05/20 20:35 Fentanyl 25 Mcg/Hr Patch 72hr TD 25 mcg Q72H LUPE Administration Gabapentin 800 mg 08/05/20 20:00 08/07/20 07:44 Gabapentin 400 Mg Cap PO 800 mg TID LUPE Administration Hydromorphone HCl 1 mg 08/06/20 13:30 08/07/20 08:37 Hydromorphone 1 Mg/1 Ml Inj IV 1 mg Q2H PRN Administration Pain , Severe (7-10) Sodium Chloride 500 mls @ 50 mls/hr 08/06/20 14:00 08/06/20 13:51 Nacl 0.9% 500 Ml IV 50 mls/hr DIRECT LUPE Administration Sodium Chloride 1,000 mls @ 30 mls/hr 08/06/20 13:30 Nacl 0.9% 1000 Ml IV DIRECT LUPE Sodium Chloride 1,000 mls @ 30 mls/hr 08/06/20 13:30 08/06/20 16:00 Nacl 0.9% 1000 Ml SHEATH 35 mls DIRECT LUPE Administration Sodium Chloride 1,000 mls @ 35 mls/hr 08/06/20 13:30 Nacl 0.9% 1000 Ml EKOSCLUMEN DIRECT LUPE Heparin Sodium/Sodium Chloride 25,000 unit in 500 mls @ 10 mls/hr 08/06/20 14:00 08/06/20 16:00 Heparin/ 0.45% Nacl-25,000 Unit/500 Ml SHEATH 10 mls DIRECT LUPE Administration Protocol 500 UNITS/HR Ondansetron HCl 4 mg 08/06/20 13:34 Ondansetron 4 Mg/2 Ml Inj IV Q4H PRN Nausea And Vomiting Oxycodone HCl 10 mg 08/05/20 20:00 08/07/20 04:21 Oxycodone 5 Mg Tab PO 10 mg Q8H LUPE Administration Pantoprazole Sodium 40 mg 08/06/20 10:00 08/06/20 15:54 Pantoprazole 40 Mg Tab PO Not Given DAILY LUPE Sertraline HCl 50 mg 08/06/20 10:00 08/06/20 15:54 Sertraline 50 Mg Tab PO Not Given QDAY LUPE Sodium Chloride 10 ml 08/05/20 22:00 08/06/20 21:40 Sodium Chloride 0.9% 10 Ml Flush Syringe IV 10 ml BID LUPE Administration Sodium Chloride 10 ml 08/05/20 17:46 Sodium Chloride 0.9% 10 Ml Flush Syringe IV PRN PRN LINE FLUSH
[2020-08-07] MEDS: fentaNYL 100 MCG/2 ML INJ ONE ×4 (10:02→11:40)
[2020-08-07] MEDS: LIDOCAINE (2%) 20 MG/1 ML VIAL 20 ML MDV INFILTRATI ONE ×2 (10:03→10:12)
[2020-08-07] MEDS: MIDAZOLAM 2 MG/2 ML INJ ONE ×4 (10:03→11:40)
[2020-08-07] MEDS: HEPARIN 10,000 UNITS/10 ML VIAL ONE ×3 (10:15→11:41)
[2020-08-07] MEDS ORDERED: SODIUM CHLORIDE 0.9% 100 ML ONE (11:01)
[2020-08-07] MEDS ORDERED: NITROGLYCERIN 2% OINT 1 GM TP ONE (11:47)
--- NOTE | 2020-08-07 12:00 | Operative Report ---
Operative Report Operative Report: Date of Procedure: 08/07/2020 Pre-operative Diagnosis: Acute Left Lower Extremity Ischemia s/p Thrombolysis Post-operative Diagnosis: Same Procedure(s): 1. Removal of EKOS Thrombolysis Catheter 2. Percutaneous Mechanical Thrombectomy of the Left Peroneal Artery with Indigo Penumbra CAT 6 Aspiration Catheter 3. Percutaneous Mechanical Thrombectomy of the Left SFA and Popliteal Artery with Indigo Penumbra CAT 6 Aspiration Catheter 4. Angioplasty of Left Peroneal Artery with 3.5 x 100 Angiosculpt Balloon and 4.0 x 150 IN.PACT Drug-Coated Balloon in the Proximal Artery and 2.5-3.0 x 210 Nanocross Balloon in the Distal Artery 5. Angioplasty of the Left Popliteal Artery and SFA with a 6.0 x 200 Elise osculpt Balloon and a 6.0 x 150 IN.PACT Drug-Coated Balloon In the Distal Popliteal Artery and a 7.0 x 80 IN.PACT Drug-Coated Balloon (x2) In the Proximal SFA 6. Closure of Right Femoral Arteriotomy with Pro-[place] Closure Device 7. Radiologic Supervision with Interpretation 8. Monitored Moderate Sedation (Total Anesthesia Time: 125 Minutes) Surgeon: Jovanny Millan M.D. Mobile Product Manager: Luis Felipe Anesthesia: Local/Monitored Moderate Sedation EBL: Minimal Counts: Correct Complications: None Condition: Stable Specimen: None Indication: The patient is a 60-year-old male with a history of tobacco abuse and Buerger's Disease who presented to the hospital with complaints of rest pain that had been present for several days. He was admitted to the hospital and started on a heparin drip and then underwent placement of an EKOS thrombolysis catheter overnight. His fibrinogen level dropped significantly throughout the night so his TPA drip had to be stopped and the patient required 15 units of cryoprecipitate. This also necessitated bringing the patient to the [facility] before his planned time for removal of the EKOS catheter. He was given the risk, benefits, and alternative procedures and had previously consented to the procedure. Angiographic Findings: The diagnostic angiogram, after removal of the thrombolysis catheter, revealed residual thrombus throughout the SFA and popliteal artery. There was significant amount of thrombus in the peroneal artery. Most thrombectomy had been performed this revealed stenosis within the proximal SFA with a napkin ring lesion of approximately 85%. There was stenosis within the stents extending from the mid SFA through the mid popliteal artery ranging from 30 to 50%. There was approximately 60% stenosis and the distal above-knee and mid below-knee popliteal artery. 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 There was diffuse disease within the peroneal artery with 50 to 99% stenosis. The artery occluded in the distal third of the calf with collateral flow providing the outflow into the foot. At the completion of the case the SFA was patent with less than 20% residual stenosis and minimal residual thrombus. The popliteal artery was patent with less than 15% residual stenosis and minimal residual thrombus. The proximal two thirds of the peroneal artery was patent with less than 10% residual stenosis and minimal residual thrombus and again the outflow into the foot was through collateral flow. Description of Procedure: The patient was brought to the [facility] and laid in supine position. After a timeout was performed his right groin, indwelling sheath, and indwelling catheter were prepped and draped in normal sterile fashion. The ultrasound wire from the EKOS catheter was removed and a diagnostic angiogram of the peroneal artery was performed the previously described findings. A Bentson wire was then advanced into the peroneal artery and a diagnostic angiogram of the SFA and popliteal artery were then performed with the previously described findings. I advanced the Indigo Penumbra CAT 6 Aspiration Catheter into the mid calf and performed percutaneous mechanical thrombectomy of the peroneal artery using the catheter as well as the separator. I then performed percutaneous mechanical thrombectomy of the popliteal artery as well as the SFA using the catheter as well as the separator. The follow-up angiogram revealed that the arteries were now patent with the previously described areas of stenosis and a moderate amount of thrombus in the SFA and popliteal arteries. I reinserted the Bentson wire then advanced a vertebral catheter into the below-knee popliteal artery. I then advanced a 7 mm spider wire into the popliteal artery and performed angioplasty of the popliteal artery and SFA beginning from the mid below-knee popliteal artery to the proximal SFA using a 6.0 x 200 Angiosculpt Balloon. This resulted in less than 10% residual stenosis within the previously placed stents however there was approximately 50 to 60% residual stenosis within the popliteal artery distal to the stents as well as the SFA proximal to the stents. Is a 6.0 x 150 IN.PACT Drug-Coated Balloon to perform angioplasty of the popliteal artery segment and 7.0 x 80 IN.PACT Drug-Coated Balloons (x2) to perform angioplasty of the proximal SFA segments. This resulted in less than 20% residual stenosis within the SFA and less than 15% residual stenosis within the popliteal artery. I advanced a 6 [place] guide catheter into the popliteal artery and then captured the filter wire which had a significant amount of thrombus within the basket. I advanced a 0.014 Choice PT Wire into the peroneal artery and performed angioplasty of the mid and proximal portion using a 3.5 x 100 Angiosculpt Balloon. This resulted in approximately 50% residual stenosis within the proximal segment as well as 85 to 90% residual stenosis in the distal segment. I used a 4.0 x 150 IN.PACT Drug-Coated Balloon to perform angioplasty of the proximal segment with a result of less than 10% residual stenosis and then advanced a 3.0-2.5 x 210 Nanocross Balloon into the distal peroneal artery and performed angioplasty with a result of less than 10% residual stenosis. At this point I exchanged the wire for the Bentson wire and then pulled the sheath back into the right external iliac artery. I performed a right anterior oblique injection demonstrating the sheath was in adequate position for use of a closure device and at this point the patient received all 15 units of the cryoprecipitate. I removed the sheath and used a Pro-glide closure device to close the right femoral arteriotomy. A sterile dressing as well as a pressure dressing were then applied to the right groin. The patient tolerated the procedure well. All sponge, needle, and instrument counts were correct. The patient was taken back to the intensive care unit in stable condition.
[2020-08-07] MEDS ORDERED: HEPARIN 10,000 UNITS/10 ML VIAL IV PRN (12:02)
[2020-08-07] MEDS ORDERED: SODIUM CHLORIDE 0.9% 1000 ML 1,000 ML IV SCH (12:15)
[2020-08-07] MEDS: HEPARIN/ 0.45% NACL DRIP 25,000 UNIT/500 ML BAG IV SCH ×3 (12:30→23:17)
[2020-08-07] MEDS: PANTOPRAZOLE 40 MG TAB PO SCH (14:43)
[2020-08-07] MEDS: SERTRALINE 50 MG TAB PO SCH (14:44)
[2020-08-07] MEDS: NITROGLYCERIN 2% OINT 1 GM TP SCH ×2 (14:46→17:59)
[2020-08-07 16:22] LABS: Hematocrit 41.4 % (35.5-45.6); Hemoglobin 13.5 gm/dl (11.8-15.2)
[2020-08-07 17:00] LABS: INR 1.18 (0.87-1.13); Partial Thromboplastin Time 39.6 Sec. (24.2-36.6)
[2020-08-07] MEDS: CILOSTAZOL 100 MG TAB PO SCH ×2 (17:34→22:41)
[2020-08-07] MEDS: NICOTINE 14 MG/24 HR PATCH TD SCH (20:11)
[2020-08-08] MEDS: HYDROmorphone 1 MG/1 ML INJ IV PRN ×7 (00:39→20:29)
[2020-08-08 05:54] LABS: BUN/Creatinine Ratio 12; Blood Urea Nitrogen 12 mg/dL (9-20); Calcium 9.1 mg/dL (8.4-10.2); Hemolysis Index 3
[2020-08-08] MEDS: NITROGLYCERIN 2% OINT 1 GM TP SCH ×3 (06:02→13:54)
[2020-08-08] MEDS: GABAPENTIN 400 MG CAP PO SCH ×3 (08:25→21:16)
--- NOTE | 2020-08-08 08:41 | Progress Note ---
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 08/07/2020 vascular procedures Acute Left Lower Extremity Ischemia s/p Thrombolysis Procedure(s): 1. Removal of EKOS Thrombolysis Catheter 2. Percutaneous Mechanical Thrombectomy of the Left Peroneal Artery 3. Percutaneous Mechanical Thrombectomy of the Left SFA and Popliteal Artery 4. Angioplasty of Left Peroneal Artery balloon angioplasty 5. Angioplasty of the Left Popliteal Artery balloon angioplasty 6. Closure of Right Femoral Arteriotomy with Pro-[place] Closure Device 7. Radiologic Supervision with Interpretation 8. Monitored Moderate Sedation (Total Anesthesia Time: 125 Minutes) --History of DVT (deep vein thrombosis) Current Visit: No Status: Acute Plan to address problem: Continue therapeutic anticoagulation with heparin drip, Transition to Eliquis per protocol --Nicotine dependence Current Visit: No Status: Acute Plan to address problem: Smoking cessation counseling, Nicotine patch as needed --DVT prophylaxis Current Visit: No Status: Acute Plan to address problem: Patient is on therapeutic anticoagulation --Discharge planning; Current Visit: No Status: Acute Plan to address problem: Follow PT evaluation and recommendation DC home with possible home health if needed When patient is medically stable --Advance care planning Current Visit: Yes Status: Acute Plan to address problem: Full CODE STATUS, plan of care discussed in detail with the patient. Closely monitor the patient and adjust management as needed Plan of care discussed with the patient's nurse and case management Closely monitor the patient and adjust management as needed The high probability of a clinically significant, sudden or life threatening deterioration of the [Vascular, hematology] system(s) required my full and direct attention, intervention and personal management. The aggregate critical care time was [35] minutes. This time is in addition to time spent performing reported procedures but includes the following: [x] Data Review and interpretation [x] Patient assessment and monitoring of vital signs [x] Documentation [x] Medication orders and management 08/06/2020; revascularization procedure, EKOS thrombolysis catheter placement 08/07/2020; vascular procedure; removal of EKOS thrombolysis catheter Mechanical thrombectomy and angioplasty, patient on heparin drip 08/08/2020; patient feels better, heparin drip discontinued transition to therapeutic dose of Eliquis PT evaluation and treatment and discharge needs Possible discharge home tomorrow if stable History Interval history: I have seen and examined the patient in ICU this morning Patient's chart and medications reviewed Patient had vascular procedure yesterday Feels better,No new complaints Vascular transitioned anticoagulation to Eliquis Vital signs reviewed Hospitalist Physical - Constitutional Vitals: Temp Pulse Resp BP Pulse Ox 98.2 F 78 13 132/63 93 08/08/20 08:00 08/08/20 06:02 08/08/20 06:00 08/08/20 06:02 08/08/20 06:00 General appearance: Present: no acute distress, well-nourished - EENT Eyes: Present: PERRL, EOM intact - Neck Neck: Present: supple, normal ROM - Respiratory Respiratory effort: normal Respiratory: bilateral: diminished, rales, negative: rhonchi, wheezing - Cardiovascular Rhythm: regular Heart Sounds: Present: S1 & S2 - Extremities Extremities: no ischemia, No edema, abnormal (Left foot dressing in place) - Abdominal General gastrointestinal: soft, non-tender - Integumentary Integumentary: Present: clear, warm - Psychiatric Psychiatric: appropriate mood/affect, cooperative - Neurologic Neurologic: moves all extremities Results - Labs CBC & Chem 7: 08/07/20 16:00 08/08/20 05:06 Labs: Laboratory Last Values WBC 8.0 K/mm3 (4.5-11.0) 08/07/20 05:33 RBC 5.29 M/mm3 (3.65-5.03) H 08/07/20 05:33 Hgb 13.5 gm/dl (11.8-15.2) 08/07/20 16:00 Hct 41.4 % (35.5-45.6) 08/07/20 16:00 MCV 81 fl (84-94) L 08/07/20 05:33 MCH 26 pg (28-32) L 08/07/20 05:33 MCHC 33 % (32-34) 08/07/20 05:33 RDW 17.3 % (13.2-15.2) H 08/07/20 05:33 Plt Count 176 K/mm3 (140-440) 08/07/20 16:00 Lymph % (Auto) 21.3 % (13.4-35.0) 08/07/20 05:33 [place] % (Auto) 12.9 % (0.0-7.3) H 08/07/20 05:33 Eos % (Auto) 0.5 % (0.0-4.3) 08/07/20 05:33 Baso % (Auto) 1.0 % (0.0-1.8) 08/07/20 05:33 Lymph # (Auto) 1.7 K/mm3 (1.2-5.4) 08/07/20 05:33 [place] # (Auto) 1.0 K/mm3 (0.0-0.8) H 08/07/20 05:33 Eos # (Auto) 0.0 K/mm3 (0.0-0.4) 08/07/20 05:33 Baso # (Auto) 0.1 K/mm3 (0.0-0.1) 08/07/20 05:33 Seg Neutrophils % 64.3 % (40.0-70.0) 08/07/20 05:33 Seg Neutrophils # 5.2 K/mm3 (1.8-7.7) 08/07/20 05:33 PT 15.0 Sec. (12.2-14.9) H 08/07/20 16:00 INR 1.18 (0.87-1.13) H 08/07/20 16:00 APTT 39.6 Sec. (24.2-36.6) H 08/07/20 16:00 Fibrinogen 266 mg/dl (211-480) 08/07/20 16:00 Fibrinogen 266 mg/dl (211-480) 08/07/20 16:00 Heparin Anti-Xa Level 0.16 U.I./ml (0.3-0.7) L 08/08/20 05:06 Sodium 135 mmol/L (137-145) L 08/08/20 05:06 Potassium 4.7 mmol/L (3.6-5.0) 08/08/20 05:06 Chloride 97.6 mmol/L (98-107) L 08/08/20 05:06 Carbon Dioxide 33 mmol/L (22-30) H 08/08/20 05:06 Anion Gap 9 mmol/L 08/08/20 05:06 BUN 12 mg/dL (9-20) 08/08/20 05:06 Creatinine 1.0 mg/dL (0.8-1.3) 08/08/20 05:06 Estimated GFR > 60 ml/min 08/08/20 05:06 BUN/Creatinine Ratio 12 % 08/08/20 05:06 Glucose 115 mg/dL (75-100) H 08/08/20 05:06 POC Glucose 123 mg/dL (70-105) H 08/07/20 23:31 Calcium 9.1 mg/dL (8.4-10.2) 08/08/20 05:06 Total Creatine Kinase 29 units/L (55-170) L 08/05/20 16:32 Blood Type B POSITIVE 08/06/20 14:30 Antibody Screen Negative 08/06/20 14:30 Lopez/IV: Voiding Method Urinal Active Medications - Current Medications Current Medications: Generic Name Dose Route Start Last Admin Trade Name Freq PRN Reason Stop Dose Admin Acetaminophen 650 mg 08/05/20 17:46 Acetaminophen 325 Mg Tab PO Q4H PRN Pain MILD(1-3)/Fever >100.5/CRYSTAL Albuterol 2.5 mg 08/05/20 17:46 Albuterol 2.5 Mg/3 Ml Nebu IH Q4HRT PRN Shortness Of Breath Cilostazol 100 mg 08/05/20 22:00 08/07/20 22:41 Cilostazol 100 Mg Tab PO 100 mg BID LUPE Administration Fentanyl 25 mcg 08/05/20 20:00 08/05/20 20:35 Fentanyl 25 Mcg/Hr Patch 72hr TD 25 mcg Q72H LUPE Administration Gabapentin 800 mg 08/05/20 20:00 08/08/20 08:25 Gabapentin 400 Mg Cap PO 800 mg TID LUPE Administration Heparin Sodium (Porcine) 3,800 unit 08/07/20 12:02 Heparin 10,000 Units/10 Ml Vial 40 unit/kg (3800 unit) IV Q6H PRN Anti-Xa Assay < 0.1 units/ml Hydromorphone HCl 1 mg 08/06/20 13:30 08/08/20 08:25 Hydromorphone 1 Mg/1 Ml Inj IV 1 mg Q2H PRN Administration Pain , Severe (7-10) Heparin Sodium/Sodium Chloride 25,000 unit in 500 mls @ 29 mls/hr 08/07/20 13:00 08/08/20 06:54 Heparin/ 0.45% Nacl-25,000 Unit/500 Ml IV 1,200 units/hr TITR LUPE 24 mls/hr Titration Protocol 1,450 UNITS/HR Sodium Chloride 1,000 mls @ 75 mls/hr 08/07/20 12:15 Nacl 0.9% 1000 Ml IV DIRECT LUPE Nicotine 14 mg 08/07/20 19:00 08/07/20 20:11 Nicotine 14 Mg/24 Hr Patch TD 14 mg QDAY LUPE Administration Nitroglycerin 0.5 inch 08/07/20 14:00 08/08/20 06:02 Nitroglycerin 2% Oint 1 Gm TP 08/08/20 14:00 0.5 inch QIDNTG LUPE Administration Protocol Ondansetron HCl 4 mg 08/06/20 13:34 Ondansetron 4 Mg/2 Ml Inj IV Q4H PRN Nausea And Vomiting Oxycodone HCl 10 mg 08/05/20 20:00 08/07/20 20:15 Oxycodone 5 Mg Tab PO 10 mg Q8H LUPE Administration Pantoprazole Sodium 40 mg 08/06/20 10:00 08/07/20 14:43 Pantoprazole 40 Mg Tab PO Not Given DAILY LUPE Sertraline HCl 50 mg 08/06/20 10:00 08/07/20 14:44 Sertraline 50 Mg Tab PO 50 mg QDAY LUPE Administration Sodium Chloride 10 ml 08/05/20 22:00 08/07/20 22:41 Sodium Chloride 0.9% 10 Ml Flush Syringe IV 10 ml BID LUPE Administration Sodium Chloride 10 ml 08/05/20 17:46 Sodium Chloride 0.9% 10 Ml Flush Syringe IV PRN PRN LINE FLUSH
[2020-08-08] MEDS: PANTOPRAZOLE 40 MG TAB PO SCH (09:33)
[2020-08-08] MEDS: SERTRALINE 50 MG TAB PO SCH (09:33)
[2020-08-08] MEDS: CILOSTAZOL 100 MG TAB PO SCH ×2 (09:34→21:22)
[2020-08-08] MEDS: DOCUSATE SODIUM 100 MG CAP PO SCH ×2 (09:35→21:21)
--- NOTE | 2020-08-08 09:42 | Progress Note ---
Assessment and Plan Okay to transfer patient to the floor. The patient will need to ambulate with physical therapy. Once he is able to ambulate and participate in his activities of daily living, the patient may be discharged. Likely tomorrow morning. Subjective Date of service: 08/08/20 Principal diagnosis: Acute arterial ischemia left leg Interval history: Patient is doing very well following thrombolysis and revascularization of his left leg. His leg is warm all the way to the his TMA. His coloration is improving. Patient has no complaints of any pain. He has a minimal amount of reperfusion edema. The patient has not yet ambulated. Puncture site is intact with no significant hematoma. Objective - Constitutional Vitals: Vital Signs - 12hr 08/07/20 08/07/20 08/07/20 22:00 22:40 23:00 Temperature Pulse Rate 75 82 Respiratory 12 13 12 Rate Blood Pressure 109/79 106/79 O2 Sat by Pulse 96 88 Oximetry 08/07/20 08/07/20 08/08/20 23:40 23:54 00:00 Temperature 98.1 F Pulse Rate 84 77 Respiratory 11 L 12 Rate Blood Pressure 106/74 106/74 O2 Sat by Pulse 92 94 Oximetry 08/08/20 08/08/20 08/08/20 00:39 01:00 02:00 Temperature Pulse Rate 89 72 Respiratory 15 11 L 12 Rate Blood Pressure O2 Sat by Pulse 90 94 Oximetry 08/08/20 08/08/20 08/08/20 03:00 03:49 04:00 Temperature 97.6 F Pulse Rate 64 Respiratory 10 L Rate Blood Pressure 123/66 117/60 O2 Sat by Pulse 89 95 Oximetry 08/08/20 08/08/20 08/08/20 05:00 06:00 06:02 Temperature Pulse Rate 83 83 78 Respiratory 10 L 13 Rate Blood Pressure 117/60 144/119 132/63 O2 Sat by Pulse 94 93 Oximetry 08/08/20 08/08/20 08:00 09:33 Temperature 98.2 F Pulse Rate 80 Respiratory Rate Blood Pressure 134/78 O2 Sat by Pulse Oximetry General appearance: Present: no acute distress - EENT Eyes: EOM intact ENT: hearing intact - Neck Neck: supple, normal ROM - Respiratory Respiratory effort: normal Extremities: abnormal (Left TMA with minimal reperfusion edema) - Gastrointestinal General gastrointestinal: Present: deferred Rectal Exam: deferred - Genitourinary Male genitourinary: deferred - Psychiatric Psychiatric: cooperative - Labs CBC & Chem 7: 08/07/20 16:00 08/08/20 05:06 Labs: Abnormal lab results 08/07/20 08/07/20 08/07/20 Range/Units 16:00 16:00 21:45 PT 15.0 H (12.2-14.9) Sec. INR 1.18 H (0.87-1.13) APTT 39.6 H (24.2-36.6) Sec. Heparin Anti-Xa Level 0.19 L 0.18 L (0.3-0.7) U.I./ml Sodium (137-145) mmol/L Chloride (98-107) mmol/L Carbon Dioxide (22-30) mmol/L Glucose (75-100) mg/dL POC Glucose (70-105) mg/dL 08/07/20 08/08/20 08/08/20 Range/Units 23:31 05:06 05:06 PT (12.2-14.9) Sec. INR (0.87-1.13) APTT (24.2-36.6) Sec. Heparin Anti-Xa Level 0.16 L (0.3-0.7) U.I./ml Sodium 135 L (137-145) mmol/L Chloride 97.6 L (98-107) mmol/L Carbon Dioxide 33 H (22-30) mmol/L Glucose 115 H (75-100) mg/dL POC Glucose 123 H (70-105) mg/dL Medications & Allergies - Medications Allergies/Adverse Reactions: Allergies bacitracin [From Neosporin ([id number])] Allergy (Verified 08/05/20 17:57) Hives neomycin [From Neosporin ([id number])] Allergy (Verified 08/05/20 17:57) Hives polymyxin B [From Neosporin ([id number])] Allergy (Verified 08/05/20 17:57) Hives morphine Adverse Reaction (Verified 02/24/18 07:55) Dizziness pt becomes combative Home Medications: Home Medications Medication Instructions Recorded Confirmed Last Taken Type Sertraline [Zoloft] 50 mg PO QDAY 02/24/18 08/06/20 03/05/19 History Gabapentin [Neurontin] 800 mg PO TID 03/06/19 08/06/20 Unknown History Oxycodone HCl [oxyCODONE] 10 mg PO Q8H 03/06/19 08/06/20 03/05/19 History fentaNYL [Duragesic] 25 mcg TD Q72H 03/06/19 08/06/20 Unknown History Apixaban [Eliquis] 5 mg PO BID #60 tablet 03/08/19 08/06/20 Unknown Rx Clopidogrel [Plavix] 75 mg PO QDAY #30 tablet 03/08/19 08/06/20 Unknown Rx Esomeprazole Magnesium [NexIUM] 40 mg PO QDAY #30 capsule. 03/08/19 08/06/20 Unknown Rx cilostazoL [Pletal] 100 mg PO BID #60 tablet 03/08/19 08/06/20 Unknown Rx Active Medications: Generic Name Dose Route Start Last Admin Trade Name Freq PRN Reason Stop Dose Admin Acetaminophen 650 mg 08/05/20 17:46 Acetaminophen 325 Mg Tab PO Q4H PRN Pain MILD(1-3)/Fever >100.5/CRYSTAL Albuterol 2.5 mg 08/05/20 17:46 Albuterol 2.5 Mg/3 Ml Nebu IH Q4HRT PRN Shortness Of Breath Cilostazol 100 mg 08/05/20 22:00 08/08/20 09:34 Cilostazol 100 Mg Tab PO 100 mg BID LUPE Administration Docusate Sodium 100 mg 08/08/20 10:00 08/08/20 09:35 Docusate Sodium 100 Mg Cap PO 100 mg BID LUPE Administration Fentanyl 25 mcg 08/05/20 20:00 08/05/20 20:35 Fentanyl 25 Mcg/Hr Patch 72hr TD 25 mcg Q72H LUPE Administration Gabapentin 800 mg 08/05/20 20:00 08/08/20 08:25 Gabapentin 400 Mg Cap PO 800 mg TID LUPE Administration Heparin Sodium (Porcine) 3,800 unit 08/07/20 12:02 Heparin 10,000 Units/10 Ml Vial 40 unit/kg (3800 unit) IV Q6H PRN Anti-Xa Assay < 0.1 units/ml Hydromorphone HCl 1 mg 08/06/20 13:30 08/08/20 08:25 Hydromorphone 1 Mg/1 Ml Inj IV 1 mg Q2H PRN Administration Pain , Severe (7-10) Heparin Sodium/Sodium Chloride 25,000 unit in 500 mls @ 29 mls/hr 08/07/20 13:00 08/08/20 06:54 Heparin/ 0.45% Nacl-25,000 Unit/500 Ml IV 1,200 units/hr TITR LUPE 24 mls/hr Titration Protocol 1,450 UNITS/HR Sodium Chloride 1,000 mls @ 75 mls/hr 08/07/20 12:15 Nacl 0.9% 1000 Ml IV DIRECT LUPE Nicotine 14 mg 08/07/20 19:00 08/07/20 20:11 Nicotine 14 Mg/24 Hr Patch TD 14 mg QDAY LUPE Administration Nitroglycerin 0.5 inch 08/07/20 14:00 08/08/20 09:33 Nitroglycerin 2% Oint 1 Gm TP 08/08/20 14:00 0.5 inch QIDNTG LUPE Administration Protocol Ondansetron HCl 4 mg 08/06/20 13:34 Ondansetron 4 Mg/2 Ml Inj IV Q4H PRN Nausea And Vomiting Oxycodone HCl 10 mg 08/05/20 20:00 08/07/20 20:15 Oxycodone 5 Mg Tab PO 10 mg Q8H LUPE Administration Pantoprazole Sodium 40 mg 08/06/20 10:00 08/08/20 09:33 Pantoprazole 40 Mg Tab PO 40 mg DAILY LUPE Administration Sertraline HCl 50 mg 08/06/20 10:00 08/08/20 09:33 Sertraline 50 Mg Tab PO 50 mg QDAY LUPE Administration Sodium Chloride 10 ml 08/05/20 22:00 08/08/20 09:36 Sodium Chloride 0.9% 10 Ml Flush Syringe IV 10 ml BID LUPE Administration Sodium Chloride 10 ml 08/05/20 17:46 Sodium Chloride 0.9% 10 Ml Flush Syringe IV PRN PRN LINE FLUSH
[2020-08-08] MEDS: NICOTINE 14 MG/24 HR PATCH TD SCH (09:56)
[2020-08-08] MEDS: oxyCODONE 5 MG TAB PO SCH ×2 (11:46→21:20)
[2020-08-08] MEDS: APIXABAN 5 MG TAB PO SCH ×2 (13:53→21:22)
[2020-08-08] MEDS: CLOPIDOGREL 75 MG TAB PO SCH (17:04)
[2020-08-08] MEDS: fentaNYL 25 MCG/HR PATCH 72HR TD SCH (21:15)
[2020-08-09] MEDS: oxyCODONE 5 MG TAB PO SCH ×3 (04:26→12:41)
[2020-08-09] MEDS: HYDROmorphone 1 MG/1 ML INJ IV PRN ×3 (06:36→15:04)
[2020-08-09 06:50] LABS: Hematocrit 34.6 % (35.5-45.6); Hemoglobin 11.5 gm/dl (11.8-15.2)
[2020-08-09 07:03] LABS: BUN/Creatinine Ratio 8; Blood Urea Nitrogen 8 mg/dL (9-20); Calcium 8.7 mg/dL (8.4-10.2); Hemolysis Index 0
[2020-08-09] MEDS: SERTRALINE 50 MG TAB PO SCH (09:46)
[2020-08-09] MEDS: PANTOPRAZOLE 40 MG TAB PO SCH (09:46)
[2020-08-09] MEDS: DOCUSATE SODIUM 100 MG CAP PO SCH (09:47)
[2020-08-09] MEDS: GABAPENTIN 400 MG CAP PO SCH ×2 (09:47→15:04)
[2020-08-09] MEDS: CLOPIDOGREL 75 MG TAB PO SCH (09:47)
[2020-08-09] MEDS: NICOTINE 14 MG/24 HR PATCH TD SCH (09:47)
[2020-08-09] MEDS: CILOSTAZOL 100 MG TAB PO SCH (09:47)
[2020-08-09] MEDS: APIXABAN 5 MG TAB PO SCH (09:47)
--- NOTE | 2020-08-09 11:35 | Discharge Summary ---
Providers - Providers Date of Admission: 08/05/20 17:46 Date of discharge: 08/09/20 Attending physician: ANGUS MEJIA 08/05/20 17:11 Consult to Physician [CONS] Urgent Comment: Consulting Provider: ALIZE TAVARES Physician Instructions: Reason For Exam: left SFA occlusion 08/05/20 20:16 Consult to Wound/ET Nurse [CONS] Routine Reason For Exam: wound eval 08/08/20 09:23 Physical Therapy Evaluation and Treat [CONS] Urgent Comment: pending discharge today after recommendation Reason For Exam: deconditioning Primary care physician: ADVISORY SOFTWARE ENGINEER Hospitalization Condition: Stable Disposition: DC-01 TO HOME OR SELFCARE Time spent for discharge: 35 min Exam - Constitutional Vitals: Temp Pulse Resp BP Pulse Ox 98.0 F 62 16 107/64 92 08/08/20 23:56 08/09/20 04:00 08/09/20 06:36 08/08/20 23:56 08/08/20 23:56 Plan Activity: advance as tolerated Diet: regular Special Instructions: smoking cessation Additional Instructions: If you have worsening symptoms contact MD or go to emergency room. Strongly advised to comply with medications diet follow-up visits. Patient verbalized understanding . Follow up with: PRIMARY CAREMD [Primary Care Provider] - 7 Days HELENA FERGUSON MD [Staff Physician] - 14 Days Prescriptions: Docusate Sodium [Colace CAP] 100 mg PO BID PRN #30 capsule PRN Reason: Constipation Apixaban [Eliquis] 2 tab PO BID #22 tablet Apixaban [Eliquis] 1 tab PO Q12HR #60 tablet Nicotine [Habitrol] 21 mg TD DAILY #30 patch Clopidogrel [Plavix] 75 mg PO QDAY #30 tablet cilostazoL [Pletal] 100 mg PO BID #60 tablet
[2020-08-09 13:05] VITALS: BP 95/50
--- NOTE | 2020-08-09 14:43 | Progress Note ---
Assessment and Plan The patient's foot is well perfused and warm. He has motor at the ankle and the appearance is significantly improved from prior to the procedure. He does have some residual pain however this is likely neuropathic in nature. I had an ext ensive discussion with the patient about smoking cessation and the likelihood of limb loss with continued tobacco abuse. The patient expresses understanding of the serious nature but also expressed the difficulty of quitting smoking. I discussed his need to continue his medications as directed and to follow-up with Dr. Mahmood in 2 weeks. The patient is otherwise clinically ready for discharge from a surgical standpoint. Subjective Date of service: 08/09/20 Principal diagnosis: Acute arterial ischemia left leg Interval history: Patient states he is having a little pain in the foot however it is signif icantly improved from prior to the procedure and is getting better daily. He has no additional complaints at this time. Objective - Constitutional Vitals: Vital Signs - 12hr 08/09/20 08/09/20 08/09/20 04:00 06:36 09:16 Temperature 97.8 F Pulse Rate 62 82 Pulse Rate [ 62 From Monitor] Respiratory 16 20 Rate Blood Pressure 95/50 O2 Sat by Pulse 91 Oximetry General appearance: Present: no acute distress - Cardiovascular Rhythm: regular Extremities: normal temperature, abnormal (Right groin entry site is without hematoma) Extremity abnormal: other (Several cyanotic areas on the kelly with some cyanotic areas on the foot however significantly improved from prior to gustavo scularization. The foot does have signs of reperfusion hyperemia) - Labs CBC & Chem 7: 08/09/20 06:20 08/09/20 06:20 Labs: Abnormal lab results 08/09/20 08/09/20 Range/Units 06:20 06:20 Hgb 11.5 L (11.8-15.2) gm/dl Hct 34.6 L D (35.5-45.6) % Sodium 135 L (137-145) mmol/L Chloride 97.2 L (98-107) mmol/L Carbon Dioxide 31 H (22-30) mmol/L BUN 8 L (9-20) mg/dL Glucose 104 H (75-100) mg/dL Medications & Allergies - Medications Allergies/Adverse Reactions: Allergies bacitracin [From Neosporin ([id number])] Allergy (Verified 08/05/20 17:57) Hives neomycin [From Neosporin ([id number])] Allergy (Verified 08/05/20 17:57) Hives polymyxin B [From Neosporin ([id number])] Allergy (Verified 08/05/20 17:57) Hives morphine Adverse Reaction (Verified 02/24/18 07:55) Dizziness pt becomes combative Home Medications: Home Medications Medication Instructions Recorded Confirmed Last Taken Type Sertraline [Zoloft] 50 mg PO QDAY 02/24/18 08/06/20 03/05/19 History Gabapentin [Neurontin] 800 mg PO TID 03/06/19 08/06/20 Unknown History Oxycodone HCl [oxyCODONE] 10 mg PO Q8H 03/06/19 08/06/20 03/05/19 History fentaNYL [Duragesic] 25 mcg TD Q72H 03/06/19 08/06/20 Unknown History Esomeprazole Magnesium [NexIUM] 40 mg PO QDAY #30 capsule. 03/08/19 08/06/20 Unknown Rx Apixaban [Eliquis] 5 mg PO BID #60 tablet 08/09/20 Unknown Rx Clopidogrel [Plavix] 75 mg PO QDAY #30 tablet 08/09/20 Unknown Rx Docusate Sodium [Colace CAP] 100 mg PO BID PRN #30 capsule 08/09/20 Unknown Rx cilostazoL [Pletal] 100 mg PO BID #60 tablet 08/09/20 Unknown Rx Active Medications: Generic Name Dose Route Start Last Admin Trade Name Freq PRN Reason Stop Dose Admin Acetaminophen 650 mg 08/05/20 17:46 Acetaminophen 325 Mg Tab PO Q4H PRN Pain MILD(1-3)/Fever >100.5/CRYSTAL Albuterol 2.5 mg 08/05/20 17:46 Albuterol 2.5 Mg/3 Ml Nebu IH Q4HRT PRN Shortness Of Breath Apixaban 10 mg 08/08/20 10:00 08/09/20 09:47 Apixaban 5 Mg Tab PO 08/14/20 22:01 10 mg Q12HR LUPE Administration Protocol Cilostazol 100 mg 08/05/20 22:00 08/09/20 09:47 Cilostazol 100 Mg Tab PO 100 mg BID LUPE Administration Clopidogrel Bisulfate 75 mg 08/08/20 17:00 08/09/20 09:47 Clopidogrel 75 Mg Tab PO 75 mg QDAY LUPE Administration Docusate Sodium 100 mg 08/08/20 10:00 08/09/20 09:47 Docusate Sodium 100 Mg Cap PO 100 mg BID LUPE Administration Fentanyl 25 mcg 08/05/20 20:00 08/08/20 21:15 Fentanyl 25 Mcg/Hr Patch 72hr TD 25 mcg Q72H LUPE Administration Gabapentin 800 mg 08/05/20 20:00 08/09/20 09:47 Gabapentin 400 Mg Cap PO 800 mg TID LUPE Administration Hydromorphone HCl 1 mg 08/06/20 13:30 08/09/20 09:46 Hydromorphone 1 Mg/1 Ml Inj IV 1 mg Q2H PRN Administration Pain , Severe (7-10) Sodium Chloride 1,000 mls @ 75 mls/hr 08/07/20 12:15 Nacl 0.9% 1000 Ml IV DIRECT LUPE Nicotine 14 mg 08/07/20 19:00 08/09/20 09:47 Nicotine 14 Mg/24 Hr Patch TD 14 mg QDAY LUPE Administration Ondansetron HCl 4 mg 08/06/20 13:34 Ondansetron 4 Mg/2 Ml Inj IV Q4H PRN Nausea And Vomiting Oxycodone HCl 10 mg 08/05/20 20:00 08/09/20 12:41 Oxycodone 5 Mg Tab PO 10 mg Q8H LUPE Administration Pantoprazole Sodium 40 mg 08/06/20 10:00 08/09/20 09:46 Pantoprazole 40 Mg Tab PO 40 mg DAILY LUPE Administration Sertraline HCl 50 mg 08/06/20 10:00 08/09/20 09:46 Sertraline 50 Mg Tab PO 50 mg QDAY LUPE Administration Sodium Chloride 10 ml 08/05/20 22:00 08/09/20 09:47 Sodium Chloride 0.9% 10 Ml Flush Syringe IV 10 ml BID LUPE Administration Sodium Chloride 10 ml 08/05/20 17:46 Sodium Chloride 0.9% 10 Ml Flush Syringe IV PRN PRN LINE FLUSH
== END 2020-08-09 18:02 | disposition home or self-care (01) | DRG 271 ==
LOC: ED 16:06 → 3A 17:46 → 4A 20:04 → CC1 08-06 14:31 → 4A 08-08 18:28
PROVIDERS: ADMIT Internal Medicine; ATTEND Internal Medicine
PROC: B44LZZZ Ultrasonography of Femoral Artery (ICD-10-PCS; 2020-08-06)
PROC: B41F1ZZ Fluoroscopy of Right Lower Extremity Arteries using Low Osmolar Contrast (ICD-10-PCS; 2020-08-06)
PROC: B4101ZZ Fluoroscopy of Abdominal Aorta using Low Osmolar Contrast (ICD-10-PCS; 2020-08-06)
PROC: B41J1ZZ Fluoroscopy of Other Lower Arteries using Low Osmolar Contrast (ICD-10-PCS; 2020-08-06)
PROC: B41G1ZZ Fluoroscopy of Left Lower Extremity Arteries using Low Osmolar Contrast (ICD-10-PCS; 2020-08-06)
PROC: 3E05317 Introduction of Other Thrombolytic into Peripheral Artery, Percutaneous Approach (ICD-10-PCS; 2020-08-06)
PROC: 04CU3ZZ Extirpation of Matter from Left Peroneal Artery, Percutaneous Approach (ICD-10-PCS; principal; 2020-08-07)
PROC: 04CL3ZZ Extirpation of Matter from Left Femoral Artery, Percutaneous Approach (ICD-10-PCS; 2020-08-07)
PROC: 04CN3ZZ Extirpation of Matter from Left Popliteal Artery, Percutaneous Approach (ICD-10-PCS; 2020-08-07)
PROC: 047U3Z1 Dilation of Left Peroneal Artery using Drug-Coated Balloon, Percutaneous Approach (ICD-10-PCS; 2020-08-07)
PROC: 047N3Z1 Dilation of Left Popliteal Artery using Drug-Coated Balloon, Percutaneous Approach (ICD-10-PCS; 2020-08-07)
PROC: 047L3Z1 Dilation of Left Femoral Artery using Drug-Coated Balloon, Percutaneous Approach (ICD-10-PCS; 2020-08-07)
PROC: 04P Lower Arteries, Removal (ICD-10-PCS; 2020-08-07)
DX: I70.222 Atherosclerosis of native arteries of extremities with rest pain, left leg (principal); F17.213 Nicotine dependence, cigarettes, with withdrawal; T82.856A Stenosis of peripheral vascular stent, initial encounter; N02.8 Recurrent and persistent hematuria with other morphologic changes; I25.10 Atherosclerotic heart disease of native coronary artery without angina pectoris; G89.4 Chronic pain syndrome; Y83.2 Surgical operation with anastomosis, bypass or graft as the cause of abnormal reaction of the patient, or of later complication, without mention of misadventure at the time of the procedure; Z95.5 Presence of coronary angioplasty implant and graft; I25.2 Old myocardial infarction; Z86.718 Personal history of other venous thrombosis and embolism; Z90.49 Acquired absence of other specified parts of digestive tract; Z82.49 Family history of ischemic heart disease and other diseases of the circulatory system; Z83.3 Family history of diabetes mellitus; Z79.899 Other long term (current) drug therapy; Z71.6 Tobacco abuse counseling; Y92.89 Other specified places as the place of occurrence of the external cause
CPT/HCPCS: 36415; 37184; 37185; 37211; 37214; 37224; 37228; 75625; 75710; 80048; 82550; 82962; 85014; 85018; 85025; 85049; 85384; 85520; 85610; 85730; 86850; 86900; 86901; 94640; 96365; 96366; 96375; 96376; G0378; C1725; C1757; C1760; C1769; C1884; C1887; C2623; J0690; J1170; J1644; J2250; J2405; J2997; J3010; J7030; J7040; Q9967

== ENCOUNTER 2022-03-02 18:25 | Inpatient (IN) | payer MEDICARE ==
--- NOTE | 2022-03-03 10:21 | Emergency Department Report ---
ED Lower Extremity HPI - General Chief Complaint: Extremity Injury, Lower Stated Complaint: LEFT FOOT HURTING Time Seen by Provider: 03/03/22 10:06 Source: patient Mode of arrival: Ambulatory Limitations: No Limitations - History of Present Illness Initial Comments: 62-year-old white male with a history of peripheral vascular disease complain about severe pain in left foot.. 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 MD Complaint: foot injury -: Sudden Injury: Foot: Left Type of Injury: unknown Place: home Severity: severe Severity scale (0 -10): 7 Improves With: nothing Worsens With: nothing - Related Data Home Medications Medication Instructions Recorded Confirmed Last Taken Sertraline [Zoloft] 50 mg PO QDAY 02/24/18 08/06/20 03/05/19 Gabapentin [Neurontin] 800 mg PO TID 03/06/19 08/06/20 Unknown Oxycodone HCl [oxyCODONE] 10 mg PO Q8H 03/06/19 08/06/20 03/05/19 fentaNYL 25 MCG/HR Patch 72hr 25 mcg TD Q72H 03/06/19 08/06/20 Unknown [DURAGESIC 25 MCG/HR Patch 72hr] Previous Rx's Medication Instructions Recorded Last Taken Type Esomeprazole Magnesium [NexIUM] 40 mg PO QDAY #30 capsule. 03/08/19 Unknown Rx Apixaban [Eliquis] 1 tab PO Q12HR #60 tablet 08/09/20 Unknown Rx Apixaban [Eliquis] 2 tab PO BID #22 tablet 08/09/20 Unknown Rx Clopidogrel [Plavix] 75 mg PO QDAY #30 tablet 08/09/20 Unknown Rx Docusate Sodium [Colace CAP] 100 mg PO BID PRN #30 capsule 08/09/20 Unknown Rx Nicotine [Habitrol] 21 mg TD DAILY #30 patch 08/09/20 Unknown Rx cilostazoL [Pletal] 100 mg PO BID #60 tablet 08/09/20 Unknown Rx Allergies Allergy/AdvReac Type Severity Reaction Status Date / Time bacitracin Allergy Hives Verified 08/05/20 17:57 [From Neosporin ([id number])] neomycin Allergy Hives Verified 08/05/20 17:57 [From Neosporin ([id number])] polymyxin B Allergy Hives Verified 08/05/20 17:57 [From Neosporin ([id number])] morphine AdvReac Dizziness Verified 02/24/18 07:55 ED Review of Systems ROS: Stated complaint: LEFT FOOT HURTING Other details as noted in HPI Constitutional: no symptoms reported Eyes: as per HPI ENT: as per HPI Respiratory: no symptoms reported Cardiovascular: as per HPI Gastrointestinal: as per HPI Musculoskeletal: as per HPI Skin: as per HPI Neurological: as per HPI Psychiatric: as per HPI Hematological/Lymphatic: as per HPI ED Past Medical Hx - Past Medical History Previous Medical History?: Yes Hx Heart Attack/AMI: Yes (1999) Hx Congestive Heart Failure: No Hx Diabetes: No Hx Deep Vein Thrombosis: Yes Hx Arthritis: No Hx Asthma: No Hx COPD: No Hx HIV: No - Surgical History Past Surgical History?: Yes Hx Coronary Stent: Yes (coronary stents) Hx Cholecystectomy: Yes - Social History Smoking Status: Current Every Day Smoker Substance Use Type: Alcohol - Medications Home Medications: Home Medications Medication Instructions Recorded Confirmed Last Taken Type Sertraline [Zoloft] 50 mg PO QDAY 02/24/18 08/06/20 03/05/19 History Gabapentin [Neurontin] 800 mg PO TID 03/06/19 08/06/20 Unknown History Oxycodone HCl [oxyCODONE] 10 mg PO Q8H 03/06/19 08/06/20 03/05/19 History fentaNYL 25 MCG/HR Patch 72hr 25 mcg TD Q72H 03/06/19 08/06/20 Unknown History [DURAGESIC 25 MCG/HR Patch 72hr] Esomeprazole Magnesium [NexIUM] 40 mg PO QDAY #30 capsule. 03/08/19 08/06/20 Unknown Rx Apixaban [Eliquis] 1 tab PO Q12HR #60 tablet 08/09/20 Unknown Rx Apixaban [Eliquis] 2 tab PO BID #22 tablet 08/09/20 Unknown Rx Clopidogrel [Plavix] 75 mg PO QDAY #30 tablet 08/09/20 Unknown Rx Docusate Sodium [Colace CAP] 100 mg PO BID PRN #30 capsule 08/09/20 Unknown Rx Nicotine [Habitrol] 21 mg TD DAILY #30 patch 08/09/20 Unknown Rx cilostazoL [Pletal] 100 mg PO BID #60 tablet 08/09/20 Unknown Rx ED Physical Exam - General Limitations: No Limitations General appearance: alert, in distress - Head Head exam: Present: atraumatic, normocephalic - Eye Eye exam: Present: normal appearance, PERRL, EOMI Pupils: Present: normal accommodation - ENT ENT exam: Present: normal exam, normal orophraynx - Neck Neck exam: Present: normal inspection - Respiratory Respiratory exam: Present: normal lung sounds bilaterally - Cardiovascular Cardiovascular Exam: Present: regular rate, normal rhythm - GI/Abdominal GI/Abdominal exam: Present: soft. Absent: distended, tenderness, guarding - exam: Present: normal inspection External exam: Present: normal external exam - Extremities Exam Extremities exam: Present: other (Left foot appears warm does not appear ischemic midfoot amputation exist no palpable pulse) ED Course Vital Signs 03/02/22 03/03/22 03/03/22 19:38 09:43 09:47 Temperature 98.5 F Pulse Rate 77 Respiratory 18 Rate Blood Pressure Blood Pressure 139/81 [Left] O2 Sat by Pulse 95 97 97 Oximetry 03/03/22 03/03/22 03/03/22 10:01 10:15 10:16 Temperature 97.5 F L Pulse Rate 49 L Respiratory 15 Rate Blood Pressure 136/81 133/78 Blood Pressure 133/78 [Left] O2 Sat by Pulse 99 98 99 Oximetry 03/03/22 03/03/22 03/03/22 10:30 10:45 11:01 Temperature Pulse Rate Respiratory Rate Blood Pressure 136/81 56/29 131/66 Blood Pressure [Left] O2 Sat by Pulse 99 97 96 Oximetry 03/03/22 03/03/22 03/03/22 11:15 11:31 11:45 Temperature Pulse Rate Respiratory Rate Blood Pressure 129/54 116/62 130/70 Blood Pressure [Left] O2 Sat by Pulse 98 95 97 Oximetry 03/03/22 03/03/22 03/03/22 12:00 12:16 12:30 Temperature Pulse Rate Respiratory Rate Blood Pressure 116/62 134/67 120/75 Blood Pressure [Left] O2 Sat by Pulse 98 97 96 Oximetry 03/03/22 03/03/22 03/03/22 12:45 13:01 13:15 Temperature Pulse Rate Respiratory Rate Blood Pressure 121/54 134/67 124/65 Blood Pressure [Left] O2 Sat by Pulse 91 93 91 Oximetry 03/03/22 03/03/22 03/03/22 13:31 13:44 13:45 Temperature Pulse Rate 48 L Respiratory 14 Rate Blood Pressure 110/64 119/95 Blood Pressure 124/64 [Left] O2 Sat by Pulse 92 100 90 Oximetry 03/03/22 03/03/22 03/03/22 14:01 14:15 14:31 Temperature Pulse Rate Respiratory Rate Blood Pressure 126/84 120/58 109/66 Blood Pressure [Left] O2 Sat by Pulse 91 90 92 Oximetry ED Lower Extremity MDM - Lab Data Result diagrams: 03/04/22 11:22 03/04/22 04:25 Critical care attestation.: If time is entered above; I have spent that time in minutes in the direct care o f this critically ill patient, excluding procedure time. ED Disposition Clinical Impression: Peripheral vascular disease Disposition: ADMITTED INPATIENT Is pt being admited?: Yes Does the pt Need Aspirin: No Condition: Serious
[2022-03-03 10:42] LABS: Basophils # (Auto) 0.1 K/mm3 (0.0-0.1); Basophils % (Auto) 1.4 % (0.0-1.8); Eosinophils # (Auto) 0.2 K/mm3 (0.0-0.4); Eosinophils % (Auto) 3.4 % (0.0-4.3); Hemoglobin 13.7 gm/dl (11.8-15.2); Lymphocytes % (Auto) 17.4 % (13.4-35.0); Mean Corpuscular HGB Conc 33 % (32-34); Mean Corpuscular Volume 79 fl (84-94); Monocytes # (Auto) 0.5 K/mm3 (0.0-0.8); Monocytes % (Auto) 8.9 % (0.0-7.3); Platelet Count 164 K/mm3 (140-440); Red Blood Count 5.31 M/mm3 (3.65-5.03); Red Cell Distribution Width 18.4 % (13.2-15.2)
--- NOTE | 2022-03-03 10:49 | XRay Report ---
CHEST 1 VIEW INDICATION / CLINICAL INFORMATION: sob STUDY TIME: 1027 COMPARISON: None available. FINDINGS: SUPPORT DEVICES: None HEART / MEDIASTINUM: No significant abnormality. LUNGS / PLEURA: Mild linear densities are seen in both lung bases with appear to represent atelectasi s and/or scarring. No definite pneumonic infiltrates are seen. No pleural effusions are noted. No pne umothorax. ADDITIONAL FINDINGS: No significant additional findings. Signer Name: Rolando Flores MD Signed: 03/03/2022 10:45 AM Workstation Name: [id number]
[2022-03-03 11:04] LABS: Alanine Aminotransferase 12 units/L (7-56); Albumin 4.1 g/dL (3.9-5); Blood Urea Nitrogen 10 mg/dL (9-20); Calcium 8.9 mg/dL (8.4-10.2); Hemolysis Index 5
[2022-03-03 11:36] LABS: BUN/Creatinine Ratio 14
[2022-03-03] MEDS ORDERED: HYDROmorphone 1 MG/1 ML INJ IV ONE (12:25)
[2022-03-03] MEDS ORDERED: ONDANSETRON 4 MG/2 ML INJ IV ONE (12:26)
--- NOTE | 2022-03-03 16:09 | Cat Scan Report ---
CTA ABDOMEN, PELVIS, AND LOWER EXTREMITIES INDICATION / CLINICAL INFORMATION: R/O L L ISCHEMIA. TECHNIQUE: Axial CT images were obtained through the abdomen, pelvis and lower extremities after injection of IV contrast. 3 plane MIP / 3D reconstructions were produced. All CT scans at this location are performe d using CT dose reduction for ALARA by means of automated exposure control. Any percent stenosis saul surements are based on criteria similar to NASCET. COMPARISON: None available. FINDINGS: CTA ABDOMEN: Abdominal Aorta: Scattered atherosclerotic plaque without significant stenosis or aneurysm. Celiac Artery: No significant abnormality. Superior Mesenteric Artery: No significant abnormality. Right Renal Artery: Mild plaque without stenosis Left Renal Artery: Mild plaque without stenosis. Inferior Mesenteric Artery: No significant abnormality. CTA PELVIS: RIGHT: - Common Iliac Artery: Atherosclerosis without flow-limiting stenosis. - Internal Iliac Artery: Atherosclerosis without flow-limiting stenosis. - External Iliac Artery: Atherosclerosis without flow-limiting stenosis. LEFT: - Common Iliac Artery: Atherosclerosis without flow-limiting stenosis. - Internal Iliac Artery: Atherosclerosis without flow-limiting stenosis. - External Iliac Artery: Atherosclerosis without flow-limiting stenosis. CTA LOWER EXTREMITIES: RIGHT LOWER EXTREMITY: - Common Femoral Artery: Atherosclerosis without flow-limiting stenosis. - Superficial Femoral Artery: Scattered noncalcified plaque without flow-limiting stenosis. - Profunda Femoral Artery: No significant abnormality. - Popliteal Artery: No significant abnormality. - Anterior Tibial Artery: The becomes nonopacified in the lower calf. - Tibioperoneal Trunk: No significant abnormality. - Posterior Tibial Artery: Comes nonopacified in the lower calf. - Peroneal Artery: Becomes nonopacified in the lower calf. - Ankle runoff: 1 vessel. LEFT LOWER EXTREMITY: - Common Femoral Artery: Atherosclerosis without flow-limiting stenosis. - Superficial Femoral Artery: Completely occluded proximally, even with a stent in place. - Profunda Femoral Artery: Patent - Popliteal Artery: No flow identified. - Anterior Tibial Artery: No flow visualized. - Tibioperoneal Trunk: Minimal flow - Posterior Tibial Artery: Minimal flow - Peroneal Artery: No flow visualized. - Ankle runoff: 1 vessel. NONTARGET STRUCTURES: ABDOMEN:No significant abnormality. PELVIS:No significant abnormality. LOWER EXTREMITIES:No significant abnormality. SKELETAL: No significant abnormality. ADDITIONAL FINDINGS: Infrarenal IVC filter in place. IMPRESSION: 1. Complete occlusion of the left superficial femoral artery and left popliteal artery, even despite the presence of a femoral artery stent. 2. One vessel runoff in both ankles. Signer Name: Boom Stone MD Signed: 03/03/2022 4:04 PM Workstation Name: [id number]
--- NOTE | 2022-03-03 16:39 | Consultation ---
History of Present Illness - Reason for Consult Consult date: 03/03/22 Left Leg Rest Pain Requesting physician: GAVIN MARQUEZ - History of Present Illness The patient is a 62-year-old male with a history of tobacco abuse and Buerger's disease who has had multiple interventions to restore flow to bilateral lower extremities. He presented to our office last week with complaints of pain involving his left lower extremity. Given his history it was assumed that he had thrombosed the left SFA. He was in the process of being set up for intervention however his rest pain worsened prompting him to present to the emergency department for evaluation. He states his pain began to February 23, and as previously stated has progressively worsened. He continues to smoke with no plans for smoking cessation. He denies any pain or complications with the right lower extremity. He has no additional complaints at this time. Past History Past Medical History: DVT (History of DVT), hypertension, hyperlipidemia, other (Buerger's disease, neuropathy) Past Surgical History: Other (Multiple endovascular interventions of bilateral lower extremities, vein ablations) Social history: , smoking Medications and Allergies Allergies Allergy/AdvReac Type Severity Reaction Status Date / Time bacitracin Allergy Hives Verified 08/05/20 17:57 [From Neosporin ([id number])] neomycin Allergy Hives Verified 08/05/20 17:57 [From Neosporin ([id number])] polymyxin B Allergy Hives Verified 08/05/20 17:57 [From Neosporin ([id number])] morphine AdvReac Dizziness Verified 02/24/18 07:55 Home Medications Medication Instructions Recorded Confirmed Last Taken Type Sertraline [Zoloft] 50 mg PO QDAY 02/24/18 08/06/20 03/05/19 History Gabapentin [Neurontin] 800 mg PO TID 03/06/19 08/06/20 Unknown History Oxycodone HCl [oxyCODONE] 10 mg PO Q8H 03/06/19 08/06/20 03/05/19 History fentaNYL 25 MCG/HR Patch 72hr 25 mcg TD Q72H 03/06/19 08/06/20 Unknown History [DURAGESIC 25 MCG/HR Patch 72hr] Esomeprazole Magnesium [NexIUM] 40 mg PO QDAY #30 capsule. 03/08/19 08/06/20 Unknown Rx Apixaban [Eliquis] 1 tab PO Q12HR #60 tablet 08/09/20 Unknown Rx Apixaban [Eliquis] 2 tab PO BID #22 tablet 08/09/20 Unknown Rx Clopidogrel [Plavix] 75 mg PO QDAY #30 tablet 08/09/20 Unknown Rx Docusate Sodium [Colace CAP] 100 mg PO BID PRN #30 capsule 08/09/20 Unknown Rx Nicotine [Habitrol] 21 mg TD DAILY #30 patch 08/09/20 Unknown Rx cilostazoL [Pletal] 100 mg PO BID #60 tablet 08/09/20 Unknown Rx Review of Systems All systems: negative Exam - Constitutional Vitals: Temp Pulse Resp BP Pulse Ox 97.5 F L 48 L 14 124/64 100 03/03/22 10:16 03/03/22 13:44 03/03/22 13:44 03/03/22 13:44 03/03/22 13:44 General appearance: Present: no acute distress - Respiratory Respiratory effort: normal - Cardiovascular Rhythm: regular - Extremities Extremities: abnormal (left foot cyanotic and cool, left shredder tender peat to palpation) - Abdominal General gastrointestinal: Present: soft Male genitourinary: Present: deferred - Rectal Rectal Exam: deferred Results - Labs CBC & Chem 7: 03/03/22 10:21 03/03/22 10:33 Labs: Abnormal lab results 03/03/22 03/03/22 Range/Units 10:21 10:33 RBC 5.31 H (3.65-5.03) M/mm3 MCV 79 L (84-94) fl MCH 26 L (28-32) pg RDW 18.4 H (13.2-15.2) % [place] % (Auto) 8.9 H (0.0-7.3) % Lymph # (Auto) 1.0 L (1.2-5.4) K/mm3 Creatinine 0.7 L (0.8-1.3) mg/dL Alkaline Phosphatase 160 H (35-129) units/L - Imaging and Cardiology CT scan - abdomen: image reviewed (occlusion of left SFA and popliteal with questionable reconstitution of the peroneal artery) Assessment and Plan The patient is a 62-year-old male who presents with critical limb ischemia of the left lower extremity. He has thrombosis of his left SFA and popliteal arteries. He will require thrombolysis and further intervention, tomorrow, as needed.
[2022-03-03] MEDS ORDERED: SODIUM CHLORIDE 0.9% 1000 ML 1,000 ML ONE ×2 (16:44→17:03)
[2022-03-03] MEDS ORDERED: LIDOCAINE (2%) 20 MG/1 ML VIAL 50 ML MDV INFILTRATI ONE (16:44)
[2022-03-03] MEDS ORDERED: HEPARIN/ 0.45% NACL DRIP 25,000 UNIT/250 ML BAG ONE (16:44)
[2022-03-03] MEDS ORDERED: ONDANSETRON 4 MG/2 ML INJ IV PRN (16:45)
[2022-03-03] MEDS ORDERED: ACETAMINOPHEN 325 MG TAB PO PRN (16:45)
[2022-03-03] MEDS ORDERED: MORPHINE 4 MG/1 ML INJ IV PRN (16:45)
[2022-03-03] MEDS ORDERED: SODIUM CHLORIDE 0.9% 1000 ML 1,000 ML SHEATH SCH (16:45)
[2022-03-03] MEDS ORDERED: SODIUM CHLORIDE 0.9% 1000 ML 1,000 ML IV SCH (16:45)
[2022-03-03] MEDS ORDERED: ALTEPLASE 20 MG in SODIUM CHLORIDE 0.9% 500 ML 500 ML EKOSDLUMEN STA (16:45)
[2022-03-03] MEDS ORDERED: SODIUM CHLORIDE 0.9% 1000 ML 1,000 ML EKOSCLUMEN SCH (16:45)
[2022-03-03] MEDS ORDERED: HEPARIN/ 0.45% NACL DRIP 25,000 UNIT/500 ML BAG SHEATH SCH (17:00)
[2022-03-03] MEDS ORDERED: MIDAZOLAM 2 MG/2 ML INJ ONE (17:17)
[2022-03-03] MEDS ORDERED: fentaNYL 100 MCG/2 ML INJ ONE (17:17)
[2022-03-03] MEDS ORDERED: WATER FOR INJ Sterile (PF) 10 ML ONE (17:21)
[2022-03-03] MEDS ORDERED: ALTEPLASE 2 MG INJ ONE (17:21)
[2022-03-03] MEDS ORDERED: HEPARIN 10,000 UNITS/10 ML VIAL ONE (17:21)
[2022-03-03] MEDS: HEPARIN 10,000 UNITS/10 ML VIAL ONE ×2 (17:21→17:40)
[2022-03-03] MEDS ORDERED: NITROGLYCERIN 2% OINT 1 GM TP ONE (17:43)
--- NOTE | 2022-03-03 17:48 | Operative Report ---
Operative Report Operative Report: Date of Procedure: 03/03/2022 Pre-operative Diagnosis: Acute Ischemia of Left Lower Extremity Post-operative Diagnosis: Same Procedure(s): 1. Ultrasound-Guided Access Right Common Femoral Artery 2. Diagnostic Aortogram (The Patient Had a Clinical Change) 3. Diagnostic Left Lower Extremity Angiogram (The Patient Had a Clinical Change) 4. Thrombolysis of Left Lower Extremity with 106 x 50 cm EKOS Thrombolysis Catheter 5. Radiologic Supervision with Interpretation 6. Monitored Moderate Sedation (Total Anesthesia Time: 53 Minutes) Surgeon: Jovanny Millan M.D. Seeing Eye Dog Teacher: None Anesthesia: Local/Monitored Moderate Sedation Total Anesthesia Time: 53 Minutes EBL: Minimal Counts: Correct Complications: None Condition: Stable Specimen: None Indication: The patient is a 62-year-old male with a history of tobacco abuse and Buerger's disease who presented with acute left lower extremity rest pain. A CTA with runoff demonstrated occlusion of his left SFA with minimal tibial runoff. He is in need of a diagnostic angiogram with possible intervention. He was given the risk, benefits, and alternative procedures and consented to the procedure. Angiographic Findings: The diagnostic aortogram revealed that the aorta was patent with mild ectasia and no evidence of aneurysmal dilatation. The left lower extremity angiogram revealed that the left common iliac artery, hypogastric artery, and external iliac artery were all patent without evidence of flow-limiting stenosis. The common femoral artery and profunda artery were patent without evidence of thrombus or flow-limiting stenosis. The SFA was occluded after a short stump at the origin without reconstitution noted. After advancing the wire and catheter into the SFA and popliteal artery it revealed that the arteries were patent however the flow was stagnant secondary to decreased outflow. There were no tibial vessels noted and only collaterals with minimal flow into the foot. The EKOS thrombolysis catheter was placed with the distal tip in the proximal tibial peroneal trunk and the possible treatment zone of the catheter was placed at the origin of the SFA. Description of Procedure: The patient was brought to the Wood Preparation Supervisor and laid in supine position. After timeout was performed his right groin was prepped and draped in normal sterile fashion. Ultrasound was used to identify the right common femoral artery and confirm patency. Once patency was confirmed the overlying skin and soft tissue was anesthetized with lidocaine. An 11 blade was used to make a small stab incision and then a curved hemostat was used with ultrasound guidance to bluntly dissect down to the anterior surface of the right common femoral artery. A 21- gauge micropuncture needle was used with ultrasound guidance to access the right common femoral artery in retrograde fashion. A 0.018 micropuncture wire was advanced to the artery and after removing the needle a micropuncture sheath was placed by Seldinger technique. The dilator and wire were removed and a 0.035 Bentson wire was advanced to the aorta. The micropuncture sheath was then exchanged for 5 [place] sheath by Seldinger technique. I advanced an Omni Flush catheter into the infrarenal aorta and after removing the wire performed a diagnostic aortogram with the previously described findings. I reinserted the Bentson wire and then used the wire and catheter to advance up and over the bifurcation and performed the remainder of the left lower extremity angiogram with the previously described findings. I advanced a Bentson wire into the profunda artery and then exchanged the 5 [place] sheath for 6 [place] 45 cm destination sheath by Seldinger technique. I then used a vertebral catheter and the 0.018 V18 wire to traverse the occluded arteries and into the below-knee popliteal artery. I advanced the wire into what I believed to be the proximal peroneal artery and then advanced the catheter and exchanged the wire for the Bentson wire. I removed the vertebral catheter and placed a 106 x 50 cm EKOS Thrombolysis Catheter with the distal tip in the tibioperoneal trunk and the proximal treatment area and the origin of the SFA. I then inserted the ultrasound wire and then injected 4 mg of tPA into the drug port, 2000 units of heparin into the coolant port, and 4000 units of heparin into the destination sheath. I then secured the catheter in place with 0 silk sutures and the catheter was dressed with sterile dressing. The patient tolerated the procedure well and was transported to the recovery area in stable condition.
--- NOTE | 2022-03-03 17:49 | History and Physical Report ---
History of Present Illness Chief complaint: My leg hurts History of present illness: 62 YO Male with CAD S/P Stent Placement, GA, DVT, Beugers Disease, Nicotine Dependence, Chronic Pain Syndrome presents, Arterial Occlusion S/P Thrombectomy presents to ED for evaluation. Pt reports "My leg hurts". Pt states that he has experienced pain in his left leg over the past 2 days with progressively worsening symptoms over the same time frame. Patient states that his leg pain is 10/10, constant, worsened with movement, also worsened with rest. Patient notified his primary care physician and was instructed to seek further care. Pt transported to [facility] via private vehicle. Pt seen and evaluated in ED. All lab and imaging studies reviewed. Patient with CT aorta with runoff and was found to have LLE Arterial Occlusion. Vascular surgery team notified. Pt taken urgently to the operating room for surgical intervention. Patient admitted to ICU due to increased risk of worsening symptoms and for medical stabilization. Pt denies fever, chills, CP, Palpitations, NVD, Trauma, BRBPR, Productive cough, skin rash, or recent ill contacts. Prior admission on 08/05/20 reviewed. All listed medication reconciled at time of admission. Advanced care planning conducted in ED. Past History Past Medical History: DVT (History of DVT), hypertension, hyperlipidemia, other (Buerger's disease, neuropathy) Past Surgical History: Other (Multiple endovascular interventions of bilateral lower extremities, vein ablations) Social history: , smoking Family history: hypertension Medications and Allergies Allergies Allergy/AdvReac Type Severity Reaction Status Date / Time bacitracin Allergy Hives Verified 08/05/20 17:57 [From Neosporin ([id number])] neomycin Allergy Hives Verified 08/05/20 17:57 [From Neosporin ([id number])] polymyxin B Allergy Hives Verified 08/05/20 17:57 [From Neosporin ([id number])] morphine AdvReac Dizziness Verified 02/24/18 07:55 Home Medications Medication Instructions Recorded Confirmed Last Taken Type Sertraline [Zoloft] 50 mg PO QDAY 02/24/18 08/06/20 03/05/19 History Gabapentin [Neurontin] 800 mg PO TID 03/06/19 08/06/20 Unknown History Oxycodone HCl [oxyCODONE] 10 mg PO Q8H 03/06/19 08/06/20 03/05/19 History fentaNYL 25 MCG/HR Patch 72hr 25 mcg TD Q72H 03/06/19 08/06/20 Unknown History [DURAGESIC 25 MCG/HR Patch 72hr] Esomeprazole Magnesium [NexIUM] 40 mg PO QDAY #30 capsule. 03/08/19 08/06/20 Unknown Rx Apixaban [Eliquis] 1 tab PO Q12HR #60 tablet 08/09/20 Unknown Rx Apixaban [Eliquis] 2 tab PO BID #22 tablet 08/09/20 Unknown Rx Clopidogrel [Plavix] 75 mg PO QDAY #30 tablet 08/09/20 Unknown Rx Docusate Sodium [Colace CAP] 100 mg PO BID PRN #30 capsule 08/09/20 Unknown Rx Nicotine [Habitrol] 21 mg TD DAILY #30 patch 08/09/20 Unknown Rx cilostazoL [Pletal] 100 mg PO BID #60 tablet 08/09/20 Unknown Rx Active Meds: Active Medications Acetaminophen (Acetaminophen 325 Mg Tab) 650 mg PO Q6H PRN PRN Reason: Pain, Mild (1-3) Hydrocodone Bitart/Acetaminophen (Hydrocodone/Acetaminophen 5-325 Mg Tab) 2 each PO Q6H PRN PRN Reason: Pain, Moderate (4-6) Hydromorphone HCl (Hydromorphone 0.5 Mg/0.5 Ml Inj) 1 mg IV Q3H PRN PRN Reason: Pain, Moderate (4-6) Sodium Chloride (Nacl 0.9% 1000 Ml) 1,000 mls @ 30 mls/hr IV DIRECT LUPE Alteplase, Recombinant 20 mg/ (Sodium Chloride) 500 mls @ 25 mls/hr EKOSDLUMEN DIRECT STA Stop: 03/04/22 12:44 Sodium Chloride (Nacl 0.9% 1000 Ml) 1,000 mls @ 30 mls/hr SHEATH DIRECT LUPE Sodium Chloride (Nacl 0.9% 1000 Ml) 1,000 mls @ 35 mls/hr EKOSCLUMEN DIRECT LUPE Heparin Sodium/Sodium Chloride (Heparin/ 0.45% Nacl-25,000 Unit/500 Ml) 25,000 unit in 500 mls @ 10 mls/hr SHEATH DIRECT LUPE; Protocol Morphine Sulfate (Morphine 4 Mg/1 Ml Inj) 4 mg IV Q4H PRN PRN Reason: Pain , Severe (7-10) Ondansetron HCl (Ondansetron 4 Mg/2 Ml Inj) 4 mg IV Q8H PRN PRN Reason: Nausea And Vomiting Review of Systems Constitutional: no weight loss, no weight gain, no fever, no chills Ears, nose, mouth and throat: no ear pain, no tinnitis, no nose pain Cardiovascular: no chest pain, no orthopnea, no rapid/irregular heart beat, no syncope Respiratory: no cough, no cough with sputum, no excessive sputum, no hemoptysis, no shortness of breath Gastrointestinal: no abdominal pain, no vomiting, no diarrhea, no hematemesis Genitourinary Male: no hematuria, no flank pain, no discharge, no urinary frequency, no urinary hesitancy Rectal: no pain, no incontinence, no bleeding Musculoskeletal: other (Leg pain) Integumentary: no rash, no pruritis, no redness, no sores, no wounds, no jaundice Neurological: no head injury, no paralysis, no tremors Psychiatric: no anxiety, no change in sleep habits, no hypersomnia, no change in libido, no suicidal ideation Endocrine: no cold intolerance, no heat intolerance, no polyuria, no nocturia Hematologic/Lymphatic: no easy bruising Allergic/Immunologic: no urticaria Exam - Constitutional Vitals: Temp Pulse Resp BP Pulse Ox 97.5 F L 89 14 117/78 100 03/03/22 10:16 03/03/22 17:31 03/03/22 17:31 03/03/22 17:31 03/03/22 17:31 General appearance: Present: mild distress - EENT Eyes: Present: PERRL ENT: hearing intact, clear oral mucosa - Neck Neck: Present: supple, normal ROM - Respiratory Respiratory effort: normal Respiratory: bilateral: CTA - Cardiovascular Heart Sounds: Present: S1 & S2. Absent: rub, click - Extremities Extremities: No edema, abnormal Extremity abnormal: cold, pulses diminished Peripheral Pulses: abnormal - Abdominal General gastrointestinal: Present: soft, non-tender, non-distended, normal bowel sounds Male genitourinary: Present: normal - Integumentary Integumentary: Present: clear, warm, dry - Musculoskeletal Musculoskeletal: gait normal, strength equal bilaterally - Psychiatric Psychiatric: appropriate mood/affect, intact judgment & insight - Neurologic Neurologic: CNII-XII intact, moves all extremities Results - Labs CBC & Chem 7: 03/03/22 10:21 03/03/22 10:33 Labs: Abnormal lab results 03/03/22 03/03/22 Range/Units 10:21 10:33 RBC 5.31 H (3.65-5.03) M/mm3 MCV 79 L (84-94) fl MCH 26 L (28-32) pg RDW 18.4 H (13.2-15.2) % [place] % (Auto) 8.9 H (0.0-7.3) % Lymph # (Auto) 1.0 L (1.2-5.4) K/mm3 Creatinine 0.7 L (0.8-1.3) mg/dL Alkaline Phosphatase 160 H (35-129) units/L Assessment and Plan - Patient Problems (1) Arterial occlusion Current Visit: Yes Status: Acute Plan to address problem: Vascular surgery team consulted. Patient taken to our OR for surgical intervention. Therapy anticoagulation as per vascular surgery team, serial vas cular exam, serial pulse exam, supportive care, pain control. The high probability of a clinically significant, sudden or life threatening deterioration of the [vascular, renal, neuro] system(s) required my full and direct attention, intervention and personal management. The aggregate critical care time was [90] minutes. This time is in addition to time spent performing reported procedures but includes the following: [x] Data Review and interpretation [x] Patient assessment and monitoring of vital signs [x] Documentation [x] Medication orders and management (2) Collado disease Current Visit: No Status: Acute Plan to address problem: Continue medical management, supportive care, vascular surgeon consulted. (3) Nicotine dependence Current Visit: No Status: Acute Qualifiers: Nicotine product type: cigarettes Substance use status: in withdrawal Qu alified Code(s): F17.213 - Nicotine dependence, cigarettes, with withdrawal Plan to address problem: Smoke cessation counseling, supportive care, behavior change counseled, +15 minutes. (4) Coronary artery disease Current Visit: Yes Status: Acute Plan to address problem: Risk factor reduction, antiplatelet therapy as clinically indicated, low- cholesterol diet. (5) DVT prophylaxis Current Visit: No Status: Acute Plan to address problem: SCD to bilateral lower extremities on bed (6) Advance care planning Current Visit: No Status: Acute Plan to address problem: Disease education data, care plan discussed, diagnoses discussed, prognosis discussed, patient full code. Patient knowledges understanding agreement with care plan, +30 minutes. (7) Preventative health care Current Visit: Yes Status: Acute Plan to address problem: Patient counseled regarding smoking cessation, risk factor reduction, compliance with outpatient medication, outpatient follow-up with primary care physician for all age and risk factor appropriate screening test. +30 minutes.
[2022-03-03] MEDS ORDERED: HEPARIN/ 0.45% NACL DRIP 25,000 UNIT/250 ML BAG SHEATH SCH (20:00)
[2022-03-03] MEDS ORDERED: HYDROmorphone 1 MG/1 ML INJ ONE (20:15)
[2022-03-03] MEDS: HYDROmorphone 0.5 MG/0.5 ML INJ IV PRN ×2 (20:20→23:57)
[2022-03-03] MEDS: HYDROcodone/ACETAMINOPHEN 5-325 MG TAB PO PRN (22:41)
[2022-03-03 22:55] LABS: Basophils % (Auto) 0.7 % (0.0-1.8); Eosinophils # (Auto) 0.1 K/mm3 (0.0-0.4); Eosinophils % (Auto) 1.9 % (0.0-4.3); Hematocrit 44.2 % (35.5-45.6); Hemoglobin 14.2 gm/dl (11.8-15.2); Lymphocytes # (Auto) 1.2 K/mm3 (1.2-5.4); Lymphocytes % (Auto) 17.9 % (13.4-35.0); Mean Corpuscular HGB Conc 32 % (32-34); Mean Corpuscular Volume 79 fl (84-94); Monocytes # (Auto) 0.4 K/mm3 (0.0-0.8); Monocytes % (Auto) 6.7 % (0.0-7.3); Platelet Count 159 K/mm3 (140-440); Red Blood Count 5.56 M/mm3 (3.65-5.03); Red Cell Distribution Width 18.4 % (13.2-15.2)
[2022-03-03 23:04] LABS: INR 1.02 (0.87-1.13)
[2022-03-03 23:05] LABS: Fibrinogen 496 mg/dl (211-480); Partial Thromboplastin Time 29.4 Sec. (24.2-36.6)
[2022-03-04] MEDS: HYDROmorphone 0.5 MG/0.5 ML INJ IV PRN ×5 (03:23→23:26)
[2022-03-04 05:04] LABS: Basophils % (Auto) 0.3 % (0.0-1.8); Eosinophils # (Auto) 0.1 K/mm3 (0.0-0.4); Eosinophils % (Auto) 1.4 % (0.0-4.3); Hematocrit 41.3 % (35.5-45.6); Hemoglobin 13.1 gm/dl (11.8-15.2); Lymphocytes # (Auto) 1.1 K/mm3 (1.2-5.4); Mean Corpuscular HGB Conc 32 % (32-34); Mean Corpuscular Volume 80 fl (84-94); Monocytes # (Auto) 0.6 K/mm3 (0.0-0.8); Monocytes % (Auto) 8.3 % (0.0-7.3); Platelet Count 137 K/mm3 (140-440); Red Blood Count 5.18 M/mm3 (3.65-5.03); Red Cell Distribution Width 18.2 % (13.2-15.2)
[2022-03-04 05:12] LABS: Fibrinogen 323 mg/dl (211-480)
[2022-03-04 05:20] LABS: Blood Urea Nitrogen 9 mg/dL (9-20); Calcium 8.4 mg/dL (8.4-10.2); Hemolysis Index 8
[2022-03-04 05:32] LABS: BUN/Creatinine Ratio 15
[2022-03-04] MEDS ORDERED: DEXTROSE 50% IN WATER (25GM) 50 ML SYRINGE IV ONE (07:26)
[2022-03-04] MEDS: SERTRALINE 50 MG TAB PO SCH (09:21)
[2022-03-04] MEDS ORDERED: PANTOPRAZOLE 40 MG TAB PO SCH (10:00)
[2022-03-04] MEDS: HYDROcodone/ACETAMINOPHEN 5-325 MG TAB PO PRN ×2 (11:00→20:20)
[2022-03-04 11:48] LABS: Basophils % (Auto) 0.4 % (0.0-1.8); Eosinophils # (Auto) 0.1 K/mm3 (0.0-0.4); Hematocrit 41.9 % (35.5-45.6); Hemoglobin 13.6 gm/dl (11.8-15.2); Lymphocytes # (Auto) 0.8 K/mm3 (1.2-5.4); Lymphocytes % (Auto) 12.2 % (13.4-35.0); Mean Corpuscular HGB Conc 32 % (32-34); Mean Corpuscular Volume 80 fl (84-94); Monocytes # (Auto) 0.5 K/mm3 (0.0-0.8); Monocytes % (Auto) 7.3 % (0.0-7.3); Platelet Count 124 K/mm3 (140-440); Red Blood Count 5.26 M/mm3 (3.65-5.03); Red Cell Distribution Width 17.9 % (13.2-15.2)
[2022-03-04 12:27] LABS: Fibrinogen 294 mg/dl (211-480)
[2022-03-04] MEDS ORDERED: HEPARIN 10,000 UNITS/10 ML VIAL ONE (13:09)
[2022-03-04] MEDS ORDERED: SODIUM CHLORIDE 0.9% 1000 ML 1,000 ML ONE (13:09)
[2022-03-04] MEDS ORDERED: LIDOCAINE (2%) 20 MG/1 ML VIAL 20 ML MDV INFILTRATI ONE (13:09)
[2022-03-04] MEDS ORDERED: HEPARIN/NS 5000 UNIT/500ML 1,000 ML IR ONE (13:10)
[2022-03-04] MEDS ORDERED: fentaNYL 100 MCG/2 ML INJ ONE (13:46)
[2022-03-04] MEDS: MIDAZOLAM 2 MG/2 ML INJ ONE ×2 (14:10→14:47)
[2022-03-04] MEDS ORDERED: NITROGLYCERIN SYRINGE 3 ML ONE (14:26)
[2022-03-04] MEDS: fentaNYL 100 MCG/2 ML INJ ONE ×2 (14:33→14:47)
[2022-03-04] MEDS ORDERED: APIXABAN 5 MG TAB ONE (15:15)
[2022-03-04] MEDS ORDERED: CLOPIDOGREL 75 MG TAB ONE (15:16)
[2022-03-04] MEDS ORDERED: DOCUSATE SODIUM 100 MG CAP PO PRN (15:24)
[2022-03-04] MEDS ORDERED: NON-FORMULARY EACH (Apixaban 5 MG Tablet) PO SCH (15:30)
--- NOTE | 2022-03-04 15:34 | Operative Report ---
Operative Report Operative Report: Date of Procedure: 03/04/2022 Pre-operative Diagnosis: Acute Left Lower Extremity Ischemia Status Post Thrombo lysis Post-operative Diagnosis: Same Procedure(s): 1. Removal of EKOS Thrombolysis Catheter 2. Angioplasty of Left Peroneal Artery with 3.0 x 100 Angiosculpt Balloon, 3.0- 3.5 x 220 Tapered NanoCross Balloon, 4.0 x 150 IN.PACT Drug-Coated Balloon, and 4.0 x 120 IN.PACT Drug-Coated Balloon 3. Percutaneous Mechanical Thrombectomy of Left Peroneal Artery with Penumbra Indigo CAT 6 Aspiration Catheter 4. Closure of Right Femoral Arteriotomy with PerClose ProStyle Closure Device 5. Radiologic Supervision with Interpretation 6. Monitored Moderate Sedation (Total Anesthesia Time: 63 Minutes) Surgeon: Jovanny Millan M.D. Crop Scout: Luis Felipe Anesthesia: Local/Monitored Moderate Sedation Total Anesthesia Time: 63 Minutes EBL: Minimal Counts: Correct Complications: None Condition: Stable Specimen: None Indication: The patient is a 62-year-old male with a history of tobacco abuse and Buerger's disease who presented with acute ischemia of his left lower extremity. He underwent thrombolysis overnight and returns for removal of his thrombolysis catheter and intervention as needed. He was given the risk, benefits, and alternative procedures and consented to the procedure. Angiographic Findings: The follow-up angiogram revealed the SFA and popliteal artery were patent without significant residual thrombus or flow-limiting stenosis. The tibioperoneal trunk was patent however the peroneal artery remained occluded with minimal collaterals flow into the foot. After intervention the peroneal artery was patent with approximately 40% residual stenosis in a short segment in the mid artery however the remainder of the artery was patent with approximately 20% residual stenosis with minimal residual thrombus. There was brisk flow of contrast to the peroneal artery and into multiple corkscrew collaterals which provided flow into the foot. Description of Procedure: The patient was brought to the [facility] and laid in supine position. After a timeout was performed his right groin and indwelling catheter and sheath were prepped and draped in normal sterile fashion. An angiogram was performed with the previously described findings. A 0.035 Bentson wire was advanced through the thrombolysis catheter and into the proximal peroneal artery. At this point I systemically heparinized the patient with 5000's of heparin IV. I then used a Navicross catheter and 0.018 V18 wire and was able to advance the catheter and wire into the distal peroneal artery. An angiogram confirmed placement as well as multiple collaterals receiving flow from the distal peroneal artery. I i nitially performed angioplasty of the entire artery using a 3.0 x 220 Dennis Balloon however this resulted in complete recoil of the lesions. I decided to perform angioplasty using a 3.0 x 100 Angisculpt Balloon followed by angioplasty of the entire artery with 4.0 x 150 IN.PACT Drug-Coated Balloon and a 4.0 x 120 IN.PACT Drug-Coated Balloon. This resulted in approximately 20% residual stenosis within the majority of the artery however there was a short segment in the mid artery with 70% stenosis as well as sluggish flow suggestive of thrombus in the distal artery. I used a Penumbra Indigo CAT 6 Aspiration Catheter followed by an injection of 600 mcg of nitroglycerin into the peroneal artery. Follow-up angiogram revealed minimal residual thrombus with 80 to 90% stenosis in the distal artery and the 70% stenosis within the mid artery as previously described. I advanced a 0.014 Choice PT wire into the artery and performed angioplasty using a 3.0-3.5 x 220 Tapered NanoCross Balloon. This resulted in approximately 20% residual stenosis throughout the majority of the artery and 40% in the short segment of the mid artery however this was not flow-limiting. There was brisk flow of contrast into the collateral vessels was then flowed into the foot. At this point all balloons and wires were removed and a 0.035 Bentson wire was advanced into the aorta after pulling the sheath into the right external iliac artery. A PerClose ProStyle closure device was then used to close the right femoral arteriotomy. A sterile dressing was then applied to the entry site and the patient was transported to the ICU in stable condition.
[2022-03-04] MEDS ORDERED: CLOPIDOGREL 300 MG TAB PO ONE (15:58)
[2022-03-04] MEDS ORDERED: CLOPIDOGREL 75 MG TAB PO ONE (15:58)
[2022-03-04] MEDS ORDERED: fentaNYL 25 MCG/HR PATCH 72HR TD SCH (16:00)
--- NOTE | 2022-03-04 17:28 | Progress Note ---
Assessment and Plan Assessment and plan: This is a 62-year-old male with active tobacco abuse, HTN, Bueger's disease, chronic pain syndrome, CAD s/p stent, CA, DVT admitted with acute ischemia of left lower extremity and occlusion of left SFA with minimal tibial runoff Neuro: h/o neuropathy, chronic pain syndrome -Reorientation as needed -Maintain sleep-wake cycle -As needed analgesia -Continue home gabapentin and Zoloft Cardiac: h/o HTN, CAD s/p stent -No home antihypertensive or GDMT recorded or reported -Blood pressure monitoring per protocol Vascular: Left SFA occlusion s/p thrombolysis of left lower extremity, angioplasty of left peroneal artery, percutaneous mechanical thrombectomy of left peroneal artery, h/o Buerger's Disease s/p vascular interventions to bilat eral extremities with vein ablations -Demonstrated on CTA abdomen -Vascular surgery consulted, appreciate recommendations -S/p thrombolysis of left lower extremity, angioplasty of left peroneal artery, thrombectomy of left peroneal artery on 03/03 and 03/04 -Apixaban, Pletal, Plavix -Follow-up outpatient with vascular surgery Respiratory: Acute hypoxic respiratory failure, current nicotine abuse -Currently on nasal cannula -Pulmonary hygiene -SPO2 monitor per protocol -Supplemental oxygen as needed -Tobacco cessation strongly encouraged GI: NAD -24 hours +1750 mL -PPI -Cardiac diet -BR: Colace : NAD -Monitor intake and output -Avoid nephrotoxic medications ID: NAD -Monitor WBC and temperature curve Endo: NAD -Avoid hypoglycemia Heme: NAD -Trend CBC -Transfuse hemoglobin less than 7 -Anticoagulation with Eliquis p.o. The high probability of a clinically significant, sudden or life threatening deterioration of the [CV] system(s) required my full and direct attention, intervention and personal management. The aggregate critical care time was [60] minutes. This time is in addition to time spent performing reported procedures but includes the following: [x] Data Review and interpretation [x] Patient assessment and monitoring of vital signs [x] Documentation [x] Medication orders and management Disposition Plan: icu Total Time Spent with Patient (Minutes): 60 History Interval history: This is a 62-year-old with active tobacco abuse, HTN, Buerger's Disease s/p vascular interventions to bilateral extremities with vein ablations, chronic pain syndrome, CAD S/P stent, CA, DVT and neuropathy who presented to the emergency department on 03/03 due to severe pain in her left lower extremity which initially started on 02/23 and progressively worsened. Patient admitted pain at /, constant, worsened with movement and rest. In the ED patient underwent a CTA with aorta with runoff and was found to have a left lower extremity arterial occlusion and vascular surgery was consulted. Patient was taken to emergently to the [facility] for surgical intervention and admitted to the ICU post EKOS for further management. Hospital course to date: 03/04: Patient is status post thrombolysis of left lower extremity with EKOS catheter. Patient is sinus bradycardia when sleeping. 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 Started on diet. Hospitalist Physical - Constitutional Vitals: Temp Pulse Resp BP Pulse Ox 98.1 F 61 14 97/58 92 03/04/22 16:00 03/04/22 16:30 03/04/22 16:30 03/04/22 16:30 03/04/22 16:30 General appearance: Present: no acute distress - EENT Eyes: Present: PERRL, EOM intact ENT: hearing intact, clear oral mucosa, dentition normal - Neck Neck: Present: normal ROM - Respiratory Respiratory effort: normal Respiratory: bilateral: CTA - Cardiovascular Rhythm: regular Heart Sounds: Present: S1 & S2. Absent: systolic murmur, diastolic murmur - Extremities Extremities: no ischemia Extremity abnormal: erythema, pulses diminished - Peripheral pulses dorsalis pedis Pulse Strength: 1+ (Doppler) popliteal Pulse Strength: 1+ (Doppler) posterial tibial Pulse Strength: 1+ (Doppler) - Abdominal General gastrointestinal: soft, non-tender, non-distended, normal bowel sounds - Integumentary Integumentary: Present: warm, dry - Psychiatric Psychiatric: cooperative - Neurologic Neurologic: CNII-XII intact, no focal deficits, moves all extremities - Allied Health Allied health notes reviewed: nursing, RT, social work Results - Labs CBC & Chem 7: 03/04/22 11:22 03/04/22 04:25 Labs: Laboratory Last Values WBC 6.2 K/mm3 (4.5-11.0) 03/04/22 11: RBC 5.26 M/mm3 (3.65-5.03) H 03/04/22 11:22 Hgb 13.6 gm/dl (11.8-15.2) 03/04/22 11:22 Hct 41.9 % (35.5-45.6) 03/04/22 11:22 MCV 80 fl (84-94) L 03/04/22 11:22 MCH 26 pg (28-32) L 03/04/22 11:22 MCHC 32 % (32-34) 03/04/22 11:22 RDW 17.9 % (13.2-15.2) H 03/04/22 11:22 Plt Count 124 K/mm3 (140-440) L 03/04/22 11:22 Lymph % (Auto) 12.2 % (13.4-35.0) L 03/04/22 11:22 [place] % (Auto) 7.3 % (0.0-7.3) 03/04/22 11:22 Eos % (Auto) 1.0 % (0.0-4.3) 03/04/22 11:22 Baso % (Auto) 0.4 % (0.0-1.8) 03/04/22 11:22 Lymph # (Auto) 0.8 K/mm3 (1.2-5.4) L 03/04/22 11:22 [place] # (Auto) 0.5 K/mm3 (0.0-0.8) 03/04/22 11:22 Eos # (Auto) 0.1 K/mm3 (0.0-0.4) 03/04/22 11:22 Baso # (Auto) 0.0 K/mm3 (0.0-0.1) 03/04/22 11:22 Seg Neutrophils % 79.1 % (40.0-70.0) H 03/04/22 11:22 Seg Neutrophils # 4.9 K/mm3 (1.8-7.7) 03/04/22 11:22 PT 14.5 Sec. (12.2-14.9) 03/03/22 22:44 INR 1.02 (0.87-1.13) 03/03/22 22:44 APTT 29.4 Sec. (24.2-36.6) 03/03/22 22:44 Fibrinogen 294 mg/dl (211-480) 03/04/22 11:22 Heparin Anti-Xa Level < 0.10 U.I./ml (0.3-0.7) L 03/04/22 11:22 Sodium 140 mmol/L (137-145) 03/04/22 04:25 Potassium 4.0 mmol/L (3.6-5.0) 03/04/22 04:25 Chloride 104.4 mmol/L (98-107) 03/04/22 04:25 Carbon Dioxide 23 mmol/L (22-30) 03/04/22 04:25 Anion Gap 17 mmol/L 03/04/22 04:25 BUN 9 mg/dL (9-20) 03/04/22 04:25 Creatinine 0.6 mg/dL (0.8-1.3) L 03/04/22 04:25 Estimated GFR > 60 ml/min 03/04/22 04:25 BUN/Creatinine Ratio 15 % 03/04/22 04:25 Glucose 67 mg/dL (75-100) L 03/04/22 04:25 POC Glucose 87 mg/dL (70-105) 03/04/22 11:44 Calcium 8.4 mg/dL (8.4-10.2) 03/04/22 04:25 Total Bilirubin 0.50 mg/dL (0.1-1.2) 03/03/22 10:33 AST 14 units/L (5-40) 03/03/22 10:33 ALT 12 units/L (7-56) 03/03/22 10:33 Alkaline Phosphatase 160 units/L (35-129) H 03/03/22 10:33 Total Protein 6.7 g/dL (6.3-8.2) 03/03/22 10:33 Albumin 4.1 g/dL (3.9-5) 03/03/22 10:33 Albumin/Globulin Ratio 1.6 % 03/03/22 10:33 Active Medications - Current Medications Current Medications: Generic Name Dose Route Start Last Admin Trade Name Freq PRN Reason Stop Dose Admin Acetaminophen 650 mg 03/03/22 16:45 Acetaminophen 325 Mg Tab PO Q6H PRN Pain, Mild (1-3) Hydrocodone Bitart/Acetaminophen 2 each 03/03/22 16:45 03/04/22 11:00 Hydrocodone/Acetaminophen 5-325 Mg Tab PO 2 each Q6H PRN Administration Pain, Moderate (4-6) Cilostazol 100 mg 03/04/22 22:00 Cilostazol 100 Mg Tab PO BID [facility] Clopidogrel Bisulfate 75 mg 03/05/22 10:00 Clopidogrel 75 Mg Tab PO QDAY [facility] Clopidogrel Bisulfate 150 mg 03/04/22 15:58 Clopidogrel 300 Mg Tab PO 03/04/22 15:59 ONCE ONE Docusate Sodium 100 mg 03/04/22 15:24 Docusate Sodium 100 Mg Cap PO BID PRN Constipation Famotidine 40 mg 03/05/22 22:00 Famotidine 20 Mg Tab PO QHS [facility] Fentanyl 1 applic 03/04/22 16:00 03/04/22 16:31 Fentanyl 25 Mcg/Hr Patch 72hr TD 1 applic Q72H [facility] Administration Gabapentin 800 mg 03/04/22 20:00 Gabapentin 400 Mg Cap PO TID [facility] Hydromorphone HCl 1 mg 03/03/22 16:45 03/04/22 10:29 Hydromorphone 0.5 Mg/0.5 Ml Inj IV 1 mg Q3H PRN Administration Pain, Moderate (4-6) Miscellaneous Medication 1 tab 03/04/22 15:30 Apixaban PO Q12HR [facility] Ondansetron HCl 4 mg 03/03/22 16:45 03/04/22 10:16 Ondansetron 4 Mg/2 Ml Inj IV 4 mg Q8H PRN Administration Nausea And Vomiting Sertraline HCl 50 mg 03/04/22 10:00 03/04/22 09:21 Sertraline 50 Mg Tab PO 50 mg QDAY LUPE Administration
[2022-03-04] MEDS ORDERED: CLOPIDOGREL 75 MG TAB PO SCH (18:00)
[2022-03-04] MEDS ORDERED: NON-FORMULARY EACH (Gabapentin [Neurontin] 800 MG Tablet) PO SCH (20:00)
[2022-03-04] MEDS: GABAPENTIN 400 MG CAP PO SCH (20:11)
[2022-03-04] MEDS: APIXABAN 5 MG TAB PO SCH (21:21)
[2022-03-04] MEDS: DOCUSATE SODIUM 100 MG CAP PO SCH (21:21)
[2022-03-04] MEDS: CILOSTAZOL 100 MG TAB PO SCH (21:21)
[2022-03-05] MEDS: HYDROcodone/ACETAMINOPHEN 5-325 MG TAB PO PRN ×2 (02:34→10:31)
[2022-03-05 05:21] LABS: Hematocrit 38.1 % (35.5-45.6); Hemoglobin 12.7 gm/dl (11.8-15.2); Mean Corpuscular HGB Conc 33 % (32-34); Mean Corpuscular Volume 79 fl (84-94); Platelet Count 133 K/mm3 (140-440); Red Blood Count 4.82 M/mm3 (3.65-5.03); Red Cell Distribution Width 17.9 % (13.2-15.2)
[2022-03-05] MEDS: HYDROmorphone 0.5 MG/0.5 ML INJ IV PRN ×3 (05:27→11:51)
[2022-03-05] MEDS: GABAPENTIN 400 MG CAP PO SCH (07:36)
[2022-03-05] MEDS: CILOSTAZOL 100 MG TAB PO SCH (09:49)
[2022-03-05] MEDS: APIXABAN 5 MG TAB PO SCH (09:49)
[2022-03-05] MEDS: SERTRALINE 50 MG TAB PO SCH (09:49)
[2022-03-05] MEDS: DOCUSATE SODIUM 100 MG CAP PO SCH (09:53)
[2022-03-05] MEDS ORDERED: CLOPIDOGREL 75 MG TAB PO SCH (10:00)
--- NOTE | 2022-03-05 11:45 | Progress Note ---
Assessment and Plan Patient is doing very well following his revascularization procedure. He will need to restart his annual coagulation home meds. He may be discharged after demonstrating the ability to ambulate. He will follow-up in clinic with Dr. Mahmood in 2 weeks. Subjective Date of service: 03/05/22 Principal diagnosis: PVD with thromboembolic disease left leg Interval history: Patient is doing very well following interventions of the last 2 days with robert jhony of thrombus and revascularization. His foot is warm and well-perfused. No complaints of any pain. Patient is resting comfortably in bed at time of examination. Right groin puncture site pressure dressing removed. His right groin is soft with no significant hematoma. Objective - Constitutional Vitals: Vital Signs - 12hr 03/05/22 03/05/22 03/05/22 00:00 00:06 00:30 Pulse Rate 54 L 57 L 54 L Pulse Rate [ 54 L From Monitor] Respiratory 19 15 17 Rate Blood Pressure 92/57 76/39 125/53 O2 Sat by Pulse 94 93 95 Oximetry 03/05/22 03/05/22 03/05/22 01:00 01:30 02:00 Pulse Rate 56 L 59 L 49 L Pulse Rate [ From Monitor] Respiratory 18 15 12 Rate Blood Pressure 116/59 125/56 120/56 O2 Sat by Pulse 94 93 94 Oximetry 03/05/22 03/05/22 03/05/22 02:30 03:00 03:30 Pulse Rate 58 L 54 L 47 L Pulse Rate [ From Monitor] Respiratory 15 20 18 Rate Blood Pressure 114/59 135/48 134/47 O2 Sat by Pulse 96 96 94 Oximetry 03/05/22 03/05/22 03/05/22 04:00 04:30 05:00 Pulse Rate 55 L 53 L 48 L Pulse Rate [ 55 L From Monitor] Respiratory 12 17 19 Rate Blood Pressure 134/47 107/53 107/53 O2 Sat by Pulse 95 95 94 Oximetry 03/05/22 03/05/22 03/05/22 05:30 06:00 06:30 Pulse Rate 54 L 51 L 53 L Pulse Rate [ From Monitor] Respiratory 16 17 14 Rate Blood Pressure 107/60 114/52 127/43 O2 Sat by Pulse 92 94 95 Oximetry 03/05/22 03/05/22 03/05/22 07:00 07:30 07:58 Pulse Rate 51 L 53 L Pulse Rate [ 49 L From Monitor] Respiratory 13 15 15 Rate Blood Pressure 113/65 134/70 O2 Sat by Pulse 93 94 94 Oximetry 03/05/22 03/05/22 03/05/22 08:00 08:11 08:30 Pulse Rate 52 L 52 L Pulse Rate [ From Monitor] Respiratory 17 10 L Rate Blood Pressure 134/70 134/70 O2 Sat by Pulse 96 96 97 Oximetry 03/05/22 03/05/22 03/05/22 09:00 09:30 10:00 Pulse Rate 55 L 61 49 L Pulse Rate [ From Monitor] Respiratory 13 13 13 Rate Blood Pressure 153/63 145/52 128/62 O2 Sat by Pulse 96 95 96 Oximetry 03/05/22 03/05/22 10:30 11:00 Pulse Rate 57 L 54 L Pulse Rate [ From Monitor] Respiratory 14 16 Rate Blood Pressure 120/48 120/48 O2 Sat by Pulse 96 95 Oximetry General appearance: Present: no acute distress - EENT Eyes: EOM intact ENT: hearing intact - Neck Neck: supple, normal ROM - Respiratory Respiratory effort: normal Extremities: abnormal (Left TMA) - Gastrointestinal General gastrointestinal: Present: deferred Rectal Exam: deferred - Genitourinary Male genitourinary: deferred - Labs CBC & Chem 7: 03/05/22 04:45 03/04/22 04:25 Labs: Abnormal lab results 03/04/22 03/04/22 03/04/22 Range/Units 11:22 11:22 17:23 RBC 5.26 H (3.65-5.03) M/mm3 MCV 80 L (84-94) fl MCH 26 L (28-32) pg RDW 17.9 H (13.2-15.2) % Plt Count 124 L (140-440) K/mm3 Lymph % (Auto) 12.2 L (13.4-35.0) % Lymph # (Auto) 0.8 L (1.2-5.4) K/mm3 Seg Neutrophils % 79.1 H (40.0-70.0) % Heparin Anti-Xa Level < 0.10 L (0.3-0.7) U.I./ml POC Glucose 67 L (70-105) mg/dL 03/04/22 03/05/22 Range/Units 17:48 04:45 RBC (3.65-5.03) M/mm3 MCV 79 L (84-94) fl MCH 26 L (28-32) pg RDW 17.9 H (13.2-15.2) % Plt Count 133 L (140-440) K/mm3 Lymph % (Auto) (13.4-35.0) % Lymph # (Auto) (1.2-5.4) K/mm3 Seg Neutrophils % (40.0-70.0) % Heparin Anti-Xa Level (0.3-0.7) U.I./ml POC Glucose 116 H (70-105) mg/dL Medications & Allergies - Medications Allergies/Adverse Reactions: Allergies bacitracin [From Neosporin ([id number])] Allergy (Verified 08/05/20 17:57) Hives neomycin [From Neosporin ([id number])] Allergy (Verified 08/05/20 17:57) Hives polymyxin B [From Neosporin ([id number])] Allergy (Verified 08/05/20 17:57) Hives morphine Adverse Reaction (Verified 02/24/18 07:55) Dizziness pt becomes combative Home Medications: Home Medications Medication Instructions Recorded Confirmed Last Taken Type Sertraline [Zoloft] 50 mg PO QDAY 02/24/18 08/06/20 03/05/19 History Gabapentin [Neurontin] 800 mg PO TID 03/06/19 08/06/20 Unknown History Oxycodone HCl [oxyCODONE] 10 mg PO Q8H 03/06/19 08/06/20 03/05/19 History fentaNYL 25 MCG/HR Patch 72hr 25 mcg TD Q72H 03/06/19 08/06/20 Unknown History [DURAGESIC 25 MCG/HR Patch 72hr] Esomeprazole Magnesium [NexIUM] 40 mg PO QDAY #30 capsule. 03/08/19 08/06/20 Unknown Rx Apixaban [Eliquis] 1 tab PO Q12HR #60 tablet 08/09/20 Unknown Rx Apixaban [Eliquis] 2 tab PO BID #22 tablet 08/09/20 Unknown Rx Clopidogrel [Plavix] 75 mg PO QDAY #30 tablet 08/09/20 Unknown Rx Docusate Sodium [Colace CAP] 100 mg PO BID PRN #30 capsule 08/09/20 Unknown Rx Nicotine [Habitrol] 21 mg TD DAILY #30 patch 08/09/20 Unknown Rx cilostazoL [Pletal] 100 mg PO BID #60 tablet 08/09/20 Unknown Rx Active Medications: Generic Name Dose Route Start Last Admin Trade Name Freq PRN Reason Stop Dose Admin Acetaminophen 650 mg 03/03/22 16:45 Acetaminophen 325 Mg Tab PO Q6H PRN Pain, Mild (1-3) Hydrocodone Bitart/Acetaminophen 2 each 03/03/22 16:45 03/05/22 10:31 Hydrocodone/Acetaminophen 5-325 Mg Tab PO 2 each Q6H PRN Administration Pain, Moderate (4-6) Apixaban 5 mg 03/04/22 22:00 03/05/22 09:49 Apixaban 5 Mg Tab PO 5 mg Q12HR LUPE Administration Protocol Cilostazol 100 mg 03/04/22 22:00 03/05/22 09:49 Cilostazol 100 Mg Tab PO 100 mg BID LUPE Administration Clopidogrel Bisulfate 75 mg 03/05/22 10:00 03/05/22 09:49 Clopidogrel 75 Mg Tab PO 75 mg QDAY LUPE Administration Docusate Sodium 100 mg 03/04/22 22:00 03/05/22 09:53 Docusate Sodium 100 Mg Cap PO 100 mg BID LUPE Administration Famotidine 40 mg 03/05/22 22:00 Famotidine 20 Mg Tab PO QHS LUPE Fentanyl 1 applic 03/04/22 16:00 03/04/22 16:31 Fentanyl 25 Mcg/Hr Patch 72hr TD 1 applic Q72H LUPE Administration Gabapentin 800 mg 03/04/22 20:00 03/05/22 07:36 Gabapentin 400 Mg Cap PO 800 mg TID LUPE Administration Hydromorphone HCl 1 mg 03/03/22 16:45 03/05/22 08:53 Hydromorphone 0.5 Mg/0.5 Ml Inj IV 1 mg Q3H PRN Administration Pain, Moderate (4-6) Ondansetron HCl 4 mg 03/03/22 16:45 03/04/22 10:16 Ondansetron 4 Mg/2 Ml Inj IV 4 mg Q8H PRN Administration Nausea And Vomiting Sertraline HCl 50 mg 03/04/22 10:00 03/05/22 09:49 Sertraline 50 Mg Tab PO 50 mg QDAY LUPE Administration
--- NOTE | 2022-03-05 12:02 | Discharge Summary ---
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 Patient admitted pain at /, constant, worsened with movement and rest. In the ED patient underwent a CTA with aorta with runoff and was found to have a left lower extremity arterial occlusion and vascular surgery was consulted. Patient was taken to emergently to the [facility] for surgical intervention and admitted to the ICU post EKOS for further management. on 03/04 his EKOS was removed. Patient can be discharged home per Dr. Sánchez after walking. He will need to followup with PCP and vascular surgery outpatient. Smoking cessation strongly encouraged. 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 -Demonstrated on CTA abdomen -Vascular surgery consulted, appreciate recommendations -S/p thrombolysis of left lower extremity, angioplasty of left peroneal artery, thrombectomy of left peroneal artery on 03/03 and 03/04 -Apixaban, Pletal, Plavix -Follow-up outpatient with vascular surgery Respiratory: Acute hypoxic respiratory failure, current nicotine abuse -Currently on nasal cannula -Pulmonary hygiene -SPO2 monitor per protocol -Supplemental oxygen as needed -Tobacco cessation strongly encouraged Disposition: 01 HOME / SELF CARE / HOMELESS Final Discharge Diagnosis (Prints w/discharge instructions): h/o neuropathy, chronic pain syndrome. h/o HTN, CAD s/p stent. 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 Acute hypoxic respiratory failure, current nicotine abuse Time spent for discharge: 60 Core Measure Documentation - Palliative Care Palliative Care/ Comfort Measures: Not Applicable - Core Measures Any of the following diagnoses?: history only Exam - Constitutional Vitals: Temp Pulse Resp BP Pulse Ox 98.1 F 54 L 16 120/48 95 03/04/22 16:00 03/05/22 11:00 03/05/22 11:00 03/05/22 11:00 03/05/22 11:00 General appearance: Present: no acute distress - EENT Eyes: Present: EOM intact ENT: hearing intact, clear oral mucosa, dentition normal - Neck Neck: Present: normal ROM - Respiratory Respiratory effort: normal Respiratory: bilateral: CTA - Cardiovascular Rhythm: regular Heart Sounds: Present: S1 & S2. Absent: systolic murmur, diastolic murmur - Extremities Extremities: no ischemia, normal temperature, normal color Extremity abnormal: pulses diminished - Peripheral pulses dorsalis pedis Pulse Strength: 1+ (Doppler) posterial tibial Pulse Strength: 1+ (Doppler) popliteal Pulse Strength: 1+ (Doppler) - Abdominal General gastrointestinal: Present: soft, non-tender, non-distended, normal bowel sounds - Integumentary Integumentary: Present: warm, dry - Musculoskeletal Musculoskeletal: strength equal bilaterally - Psychiatric Psychiatric: cooperative - Neurologic Neurologic: CNII-XII intact, no focal deficits, moves all extremities - Allied Health Allied health notes reviewed: nursing Plan Activity: advance as tolerated Diet: low fat, diabetic Wound: per your surgeon's advice, per wound nurse instructions Special Instructions: record daily BP diary, record blood sugar diary, smoking cessation Additional Instructions: Present to your nearest emergency room or contact your primary care physician if you experience worsening symptoms. You will need to follow up with your primary care physician and vascular surgery outpatient. Smoking cessation strongly encouraged. Follow up with: JIHAN RIVAS MD [Primary Care Provider] - 7 Days HELENA SÁNCHEZ MD [Staff Physician] - 7 Days Prescriptions: Docusate Sodium [Colace CAP] 100 mg PO BID #60 capsule Apixaban [Eliquis] 5 mg PO Q12HR #60 tablet Gabapentin 800 mg PO TID #180 capsule Clopidogrel [Plavix] 75 mg PO QDAY #30 tablet Clopidogrel [Plavix] 75 mg PO QDAY #30 tablet cilostazoL [Pletal] 100 mg PO BID #60 tablet cilostazoL [Pletal] 100 mg PO BID #60 tablet
[2022-03-05 13:24] VITALS: BP 136/57
[2022-03-05] MEDS ORDERED: FAMOTIDINE 20 MG TAB PO SCH (22:00)
== END 2022-03-05 14:30 | disposition home or self-care (01) | DRG 270 ==
LOC: ED 18:25 → CC1 03-03 18:36
PROVIDERS: ADMIT Internal Medicine; ATTEND Internal Medicine
PROC: 04H Lower Arteries, Insertion (ICD-10-PCS; 2022-03-03)
PROC: B4101ZZ Fluoroscopy of Abdominal Aorta using Low Osmolar Contrast (ICD-10-PCS; 2022-03-03)
PROC: B41G1ZZ Fluoroscopy of Left Lower Extremity Arteries using Low Osmolar Contrast (ICD-10-PCS; 2022-03-03)
PROC: 047U3Z1 Dilation of Left Peroneal Artery using Drug-Coated Balloon, Percutaneous Approach (ICD-10-PCS; principal; 2022-03-04)
PROC: X2CT3T7 Extirpation of Matter from Left Lower Extremity Artery using Computer-aided Mechanical Aspiration, Percutaneous Approach, New Technology Group 7 (ICD-10-PCS; 2022-03-04)
PROC: 04CU3ZZ Extirpation of Matter from Left Peroneal Artery, Percutaneous Approach (ICD-10-PCS; 2022-03-04)
DX: I70.222 Atherosclerosis of native arteries of extremities with rest pain, left leg (principal); J96.01 Acute respiratory failure with hypoxia; F17.213 Nicotine dependence, cigarettes, with withdrawal; I77.9 Disorder of arteries and arterioles, unspecified; I25.10 Atherosclerotic heart disease of native coronary artery without angina pectoris; I25.2 Old myocardial infarction; E78.5 Hyperlipidemia, unspecified; G89.4 Chronic pain syndrome; G62.9 Polyneuropathy, unspecified; I99.8 Other disorder of circulatory system; Z82.49 Family history of ischemic heart disease and other diseases of the circulatory system; Z90.49 Acquired absence of other specified parts of digestive tract; Z88.5 Allergy status to narcotic agent; Z88.8 Allergy status to other drugs, medicaments and biological substances; I10 Essential (primary) hypertension
CPT/HCPCS: 36415; 37184; 37211; 37214; 37228; 71045; 75625; 75635; 75710; 80048; 80053; 82962; 85025; 85027; 85384; 85520; 85610; 85730; 94760; 96374; 96375; 99285; G0378; J1815; J3490; C1725; C1757; C1769; C1887; C1894; C2623; J1170; J1644; J2250; J2405; J2997; J3010; J7030; J7040; Q9967

== ENCOUNTER 2022-03-09 10:26 | Emergency (ER) | payer MEDICARE ==
[2022-03-09 11:14] VITALS: BP 148/81
--- NOTE | 2022-03-09 11:15 | Event Note ---
ED Screening Note ED Screening Note: [address] pt [address] Mahmood here w LLE pain a/c dvt taking his xaralto/plenta/plavix saw Dr Mahmood 1 m ago This initial assessment/diagnostic orders/clinical plan/treatment(s) is/are subject to change based on patients health status, clinical progression and re- assessment by fellow clinical providers in the ED. Further treatment and workup at subsequent clinical providers discretion. Patient/guardian urged not to elope from the ED as their condition may be serious if not clinically assessed and managed. Initial orders include: labs us er
[2022-03-09 12:29] LABS: INR 0.9 (0.87-1.13)
[2022-03-09 12:30] LABS: Partial Thromboplastin Time 30.9 Sec. (24.2-36.6)
[2022-03-09 12:38] LABS: Hematocrit 38.8 % (35.5-45.6); Hemoglobin 12.8 gm/dl (11.8-15.2); Mean Corpuscular HGB Conc 33 % (32-34); Mean Corpuscular Volume 80 fl (84-94); Platelet Count 180 K/mm3 (140-440); Red Blood Count 4.82 M/mm3 (3.65-5.03); Red Cell Distribution Width 17.9 % (13.2-15.2)
[2022-03-09 12:48] LABS: Alanine Aminotransferase 16 units/L (7-56); Blood Urea Nitrogen 9 mg/dL (9-20); Calcium 8.5 mg/dL (8.4-10.2); Hemolysis Index 5
--- NOTE | 2022-03-09 12:52 | Vascular Lab Report ---
DUPLEX DOPPLER LOWER EXTREMITY VEINS, LEFT INDICATION: leg pain hx dvt. TECHNIQUE: Duplex doppler imaging was performed through the veins of the left lower extremity using venous compression and other maneuvers. COMPARISON: No relevant prior imaging study available. FINDINGS: Left Common femoral vein: Negative. Left Superficial femoral vein: Negative. Left Popliteal vein: Negative. Left Calf veins: Positive for acute occlusive DVT in the left peroneal vein. Additional findings: None. IMPRESSION: Positive for acute DVT as described Signer Name: Lukas Viera Jr, MD Signed: 03/09/2022 12:47 PM Workstation Name: [id number]
[2022-03-09 12:55] LABS: BUN/Creatinine Ratio 13
--- NOTE | 2022-03-09 15:25 | Vascular Lab Report ---
DUPLEX DOPPLER LOWER EXTREMITY ARTERIAL, LEFT INDICATION / CLINICAL INFORMATION: PAIN. TECHNIQUE: Arterial duplex examination of the left lower extremity performed using B-mode, color flow and spectr al Doppler assessment. FINDINGS: LEFT: Common Femoral Artery: PSV 141 cm/sec. Triphasic waveform. Proximal SFA: PSV 110 cm/sec. Biphasic waveform. Mid SFA: PSV 65 cm/sec. Monophasic waveform. Distal SFA: PSV 64 cm/sec. Monophasic waveform. Popliteal artery: PSV 38 cm/sec. Monophasic waveform. Posterior tibial artery: PSV 12 cm/sec. Monophasic waveform. Dorsalis Pedis Artery: PSV 55 cm/sec. Monophasic waveform. IMPRESSION: 1. Hemodynamically significant peripheral arterial disease in the superficial femoral artery and to t he calf arteries. Doppler Waveform: - Triphasic is normal. - Biphasic is abnormal if clear transition from triphasic signal along vascular tree. - Monophasic is abnormal. Signer Name: Boom Stone MD Signed: 03/09/2022 3:21 PM Workstation Name: [id number]
[2022-03-09] MEDS ORDERED: APIXABAN 5 MG TAB PO SCH (16:00)
[2022-03-09] MEDS ORDERED: CLOPIDOGREL 75 MG TAB PO SCH (16:00)
[2022-03-09] MEDS ORDERED: CILOSTAZOL 100 MG TAB PO SCH (16:00)
[2022-03-09] MEDS ORDERED: HYDROmorphone 0.5 MG/0.5 ML INJ IM ONE (16:08)
--- NOTE | 2022-03-09 16:09 | Emergency Department Report ---
ED General Adult HPI - General Chief complaint: Extremity Injury, Lower Stated complaint: LEFT FOOT PAIN Time Seen by Provider: 03/09/22 16:05 Source: patient Mode of arrival: Ambulatory Limitations: No Limitations - History of Present Illness Initial comments: 62 YO WITH A/C LLE PAIN. PT IS ON CHRONIC PAIN MEDS BUT STATES HIS PAIN BECAME ACUTELY WORSE TODAY. NO TRAUMA. REPORTS TAKING HIS MEDS INSTRUCTED PT KNOWN TO DR FERGUSON -: Sudden, hour(s) Severity scale (0 -10): 10 Quality: burning, stabbing, aching Consistency: constant Improves with: none Worsens with: none Associated Symptoms: denies other symptoms Treatments Prior to Arrival: none - Related Data Home Medications Medication Instructions Recorded Confirmed Last Taken Sertraline [Zoloft] 50 mg PO QDAY 02/24/18 03/05/22 03/05/22 Gabapentin [Neurontin] 800 mg PO TID 03/06/19 03/05/22 03/05/22 Oxycodone HCl [oxyCODONE] 10 mg PO Q8H PRN 03/06/19 03/05/22 03/05/19 fentaNYL 25 MCG/HR Patch 72hr 25 mcg TD Q72H 03/06/19 03/05/22 03/04/22 [DURAGESIC 25 MCG/HR Patch 72hr] Pregabalin 150 mg PO TID 03/05/22 03/05/22 Unknown Varenicline (Nf) [Chantix (Nf)] 1 mg PO DAILY 03/05/22 03/05/22 Unknown Previous Rx's Medication Instructions Recorded Last Taken Type Esomeprazole Magnesium [NexIUM] 40 mg PO QDAY #30 capsule. 03/08/19 Unknown Rx Apixaban [Eliquis] 1 tab PO Q12HR #60 tablet 08/09/20 03/05/22 Rx Apixaban [Eliquis] 5 mg PO Q12HR #60 tablet 03/05/22 Unknown Rx Clopidogrel [Plavix] 75 mg PO QDAY #30 tablet 03/05/22 Unknown Rx Clopidogrel [Plavix] 75 mg PO QDAY #30 tablet 03/05/22 Unknown Rx Docusate Sodium [Colace CAP] 100 mg PO BID #60 capsule 03/05/22 Unknown Rx Gabapentin 800 mg PO TID #180 capsule 03/05/22 Unknown Rx HYDROcodone/APAP 5-325 [[place] 2 each PO Q6H PRN tablet 03/05/22 Unknown Rx 5-325 mg TAB] cilostazoL [Pletal] 100 mg PO BID #60 tablet 03/05/22 Unknown Rx cilostazoL [Pletal] 100 mg PO BID #60 tablet 03/05/22 Unknown Rx Allergies Allergy/AdvReac Type Severity Reaction Status Date / Time bacitracin Allergy Hives Verified 03/09/22 11:14 [From Neosporin ([id number])] neomycin Allergy Hives Verified 03/09/22 11:14 [From Neosporin ([id number])] polymyxin B Allergy Hives Verified 03/09/22 11:14 [From Neosporin ([id number]-[id number]-[id number])] morphine AdvReac Dizziness Verified 03/09/22 11:14 ED Review of Systems ROS: Stated complaint: LEFT FOOT PAIN Other details as noted in HPI Comment: All other systems reviewed and negative ED Past Medical Hx - Past Medical History Previous Medical History?: Yes Hx Heart Attack/AMI: Yes (1999) Hx Congestive Heart Failure: No Hx Diabetes: No Hx Deep Vein Thrombosis: Yes Hx Arthritis: No Hx Asthma: No Hx COPD: No Hx HIV: No - Surgical History Past Surgical History?: Yes Hx Coronary Stent: Yes (coronary stents) Hx Cholecystectomy: Yes - Family History Family history: no significant - Social History Smoking Status: Current Every Day Smoker Substance Use Type: Alcohol - Medications Home Medications: Home Medications Medication Instructions Recorded Confirmed Last Taken Type Sertraline [Zoloft] 50 mg PO QDAY 02/24/18 03/05/22 03/05/22 History Gabapentin [Neurontin] 800 mg PO TID 03/06/19 03/05/22 03/05/22 History Oxycodone HCl [oxyCODONE] 10 mg PO Q8H PRN 03/06/19 03/05/22 03/05/19 History fentaNYL 25 MCG/HR Patch 72hr 25 mcg TD Q72H 03/06/19 03/05/22 03/04/22 History [DURAGESIC 25 MCG/HR Patch 72hr] Esomeprazole Magnesium [NexIUM] 40 mg PO QDAY #30 capsule. 03/08/19 03/05/22 Unknown Rx Apixaban [Eliquis] 1 tab PO Q12HR #60 tablet 08/09/20 03/05/22 03/05/22 Rx Apixaban [Eliquis] 5 mg PO Q12HR #60 tablet 03/05/22 Unknown Rx Clopidogrel [Plavix] 75 mg PO QDAY #30 tablet 03/05/22 Unknown Rx Clopidogrel [Plavix] 75 mg PO QDAY #30 tablet 03/05/22 Unknown Rx Docusate Sodium [Colace CAP] 100 mg PO BID #60 capsule 03/05/22 Unknown Rx Gabapentin 800 mg PO TID #180 capsule 03/05/22 Unknown Rx HYDROcodone/APAP 5-325 [[place] 2 each PO Q6H PRN tablet 03/05/22 Unknown Rx 5-325 mg TAB] Pregabalin 150 mg PO TID 03/05/22 03/05/22 Unknown History Varenicline (Nf) [Chantix (Nf)] 1 mg PO DAILY 03/05/22 03/05/22 Unknown History cilostazoL [Pletal] 100 mg PO BID #60 tablet 03/05/22 Unknown Rx cilostazoL [Pletal] 100 mg PO BID #60 tablet 03/05/22 Unknown Rx ED Physical Exam - General Limitations: No Limitations General appearance: alert, in no apparent distress - Head Head exam: Present: atraumatic, normocephalic - Eye Eye exam: Present: normal appearance - ENT ENT exam: Present: mucous membranes moist - Neck Neck exam: Present: normal inspection - Respiratory Respiratory exam: Present: normal lung sounds bilaterally. Absent: respiratory distress - Cardiovascular Cardiovascular Exam: Present: regular rate, normal rhythm. Absent: systolic murmur, diastolic murmur, rubs, gallop - GI/Abdominal GI/Abdominal exam: Present: soft, normal bowel sounds - Rectal Rectal exam: Present: deferred - Extremities Exam Extremities exam: Present: normal inspection - Back Exam Back exam: Present: normal inspection - Neurological Exam Neurological exam: Present: alert, oriented X3 - Psychiatric Psychiatric exam: Present: normal affect, normal mood - Skin Skin exam: Present: warm, dry, intact, normal color. Absent: rash ED Course Vital Signs 03/09/22 11:06 Temperature 97.7 F Pulse Rate 64 Respiratory 16 Rate Blood Pressure 148/81 O2 Sat by Pulse 97 Oximetry ED Medical Decision Making - Lab Data Result diagrams: 03/09/22 11:34 03/09/22 11:34 - Radiology Data Radiology results: report reviewed, image reviewed SEE REPORT - Medical Decision Making Labs 03/09/22 03/09/22 03/09/22 11:34 11:34 11:34 WBC 5.8 RBC 4.82 Hgb 12.8 Hct 38.8 MCV 80 L MCH 26 L MCHC 33 RDW 17.9 H Plt Count 180 PT 13.4 INR 0.90 APTT 30.9 Sodium 136 L Potassium 4.2 Chloride 97.7 L Carbon Dioxide 27 Anion Gap 16 BUN 9 Creatinine 0.7 L Estimated GFR > 60 BUN/Creatinine Ratio 13 Glucose 97 Calcium 8.5 Total Bilirubin 0.30 AST 17 ALT 16 Alkaline Phosphatase 113 Troponin T < 0.010 Total Protein 6.5 Albumin 4.0 Albumin/Globulin Ratio 1.6 Vital Signs 03/09/22 11:06 Temperature 97.7 F Pulse Rate 64 Respiratory 16 Rate Blood Pressure 148/81 O2 Sat by Pulse 97 Oximetry US NOTED LABS NOTED MEDICATED WITH HIS PLAVIX, PLENTAL AND ELOQUIS FOOT WARM DR FERGUSON AT BEDSIDE - OK TO DC WITH OFFICE FOLLOW UP SMOKING CESSATION INSTRUCTIONS GIVEN DC HOME WITH DC PLAN OF CARE INCLUDING DIET, MEDS, ACTIVITY AND FOLLOW UP - Differential Diagnosis RO LIMB ISCHEMIA Critical care attestation.: If time is entered above; I have spent that time in minutes in the direct care of this critically ill patient, excluding procedure time. ED Disposition Clinical Impression: Arterial occlusion, Peripheral vascular disease, Nicotine dependence Disposition: 01 HOME / SELF CARE / HOMELESS Is pt being admited?: No Does the pt Need Aspirin: No Condition: Stable Instructions: Steps to Quit Smoking, [id number], Steps to Quit Smoking Additional Instructions: stop smoking continue your home meds follow up with Dr Ferguson as instructed Referrals: HELENA FERGUSON MD [Staff Physician] - 3-5 Days Time of Disposition: 16:07
--- NOTE | 2022-03-09 16:16 | Consultation ---
History of Present Illness - Reason for Consult Consult date: 03/09/22 Left leg pain Requesting physician: KAYLEIGH NGUYEN - History of Present Illness 62-year-old male with a history of tobacco abuse and Buerger's disease who has had multiple interventions to restore flow to bilateral lower extremities. The patient recently had endovascular revascularization of the left lower extremity requiring thrombolysis. He presented to the emergency room with significant left lower extremity pain. Arterial ultrasound was performed demonstrating arterial disease, but patent stents. DVT study demonstrated age-indeterminate left peroneal vein thrombus. He continues to smoke with no plans for smoking cessation. He denies any pain or complications with the right lower extremity. He has no additional complaints at this time. Past Medical History: DVT (History of DVT), hypertension, hyperlipidemia, other (Buerger's disease, neuropathy) Past Surgical History: Other (Multiple endovascular interventions of bilateral lower extremities, vein ablations) Social history: , smoking Physical exam demonstrates warm bilateral lower extremities. Ulcers at the tip of the left TMA site. Nonpalpable pedal pulses. Palpable femoral pulses. Left lower extremity is warm. Patient denies neuropathy. Patient has full motor function. Medications and Allergies Allergies Allergy/AdvReac Type Severity Reaction Status Date / Time bacitracin Allergy Hives Verified 03/09/22 11:14 [From Neosporin ([id number])] neomycin Allergy Hives Verified 03/09/22 11:14 [From Neosporin ([id number])] polymyxin B Allergy Hives Verified 03/09/22 11:14 [From Neosporin ([id number])] morphine AdvReac Dizziness Verified 03/09/22 11:14 Home Medications Medication Instructions Recorded Confirmed Last Taken Type Sertraline [Zoloft] 50 mg PO QDAY 02/24/18 03/05/22 03/05/22 History Gabapentin [Neurontin] 800 mg PO TID 03/06/19 03/05/22 03/05/22 History Oxycodone HCl [oxyCODONE] 10 mg PO Q8H PRN 03/06/19 03/05/22 03/05/19 History fentaNYL 25 MCG/HR Patch 72hr 25 mcg TD Q72H 03/06/19 03/05/22 03/04/22 History [DURAGESIC 25 MCG/HR Patch 72hr] Esomeprazole Magnesium [NexIUM] 40 mg PO QDAY #30 capsule. 03/08/19 03/05/22 Unknown Rx Apixaban [Eliquis] 1 tab PO Q12HR #60 tablet 08/09/20 03/05/22 03/05/22 Rx Apixaban [Eliquis] 5 mg PO Q12HR #60 tablet 03/05/22 Unknown Rx Clopidogrel [Plavix] 75 mg PO QDAY #30 tablet 03/05/22 Unknown Rx Clopidogrel [Plavix] 75 mg PO QDAY #30 tablet 03/05/22 Unknown Rx Docusate Sodium [Colace CAP] 100 mg PO BID #60 capsule 03/05/22 Unknown Rx Gabapentin 800 mg PO TID #180 capsule 03/05/22 Unknown Rx HYDROcodone/APAP 5-325 [[place] 2 each PO Q6H PRN tablet 03/05/22 Unknown Rx 5-325 mg TAB] Pregabalin 150 mg PO TID 03/05/22 03/05/22 Unknown History Varenicline (Nf) [Chantix (Nf)] 1 mg PO DAILY 03/05/22 03/05/22 Unknown History cilostazoL [Pletal] 100 mg PO BID #60 tablet 03/05/22 Unknown Rx cilostazoL [Pletal] 100 mg PO BID #60 tablet 03/05/22 Unknown Rx Active Meds: Active Medications Apixaban (Apixaban 5 Mg Tab) 5 mg PO Q12HR LUPE; Protocol Cilostazol (Cilostazol 100 Mg Tab) 100 mg PO BID [facility] Clopidogrel Bisulfate (Clopidogrel 75 Mg Tab) 75 mg PO QDAY [place] Review of Systems All systems: negative (see HPI) Exam - Constitutional Vitals: Temp Pulse Resp BP Pulse Ox 97.7 F 64 16 148/81 97 03/09/22 11:06 03/09/22 11:06 03/09/22 11:06 03/09/22 11:06 03/09/22 11:06 General appearance: Present: mild distress (Pain from the tip of the left TMA) - EENT Eyes: Present: EOM intact ENT: hearing intact - Neck Neck: Present: supple - Respiratory Respiratory effort: normal - Extremities Extremities: pulses intact (Palpable femoral pulses), normal temperature, normal color, abnormal (Pain from the left lower extremity, left TMA with small ulcers) Extremity abnormal: edema (1-2+ edema bilaterally, varicosities), pulses diminished (Nonpalpable pedal pulses) - Abdominal General gastrointestinal: Present: soft, non-tender - Psychiatric Psychiatric: appropriate mood/affect, cooperative Results - Labs CBC & Chem 7: 03/09/22 11:34 03/09/22 11:34 Labs: Abnormal lab results 03/09/22 03/09/22 Range/Units 11:34 11:34 MCV 80 L (84-94) fl MCH 26 L (28-32) pg RDW 17.9 H (13.2-15.2) % Sodium 136 L (137-145) mmol/L Chloride 97.7 L (98-107) mmol/L Creatinine 0.7 L (0.8-1.3) mg/dL - Imaging and Cardiology Venous US: report reviewed, image reviewed Assessment and Plan 62-year-old male with Buerger's disease and peripheral vascular disease who presents with left lower extremity pain. Feet are warm and well-perfused. Left TMA has some ulcers at the tip. Suspect this is referred pain. Suspect neurologic cause as well. Patient is already taking high doses of narcotics for chronic pain and follows up with pain center. Contacted my office which we will try to arrange for compounded gabapentin cream. Recommend Medihoney use on left TMA ulcers. No acute limb ischemia at this time. Continue Plavix, cilostazol, and Eliquis. Eliquis will cover age-indeterminate infrapopliteal left lower extremity DVT. Follow-up in the office in 1 to 2 weeks. Please make sure patient takes medications prior to discharge. He will take his second dose of medication later tonight. Recommend smoking cessation.
[2022-03-09 17:13] LABS: Hematocrit 39.5 % (35.5-45.6); Mean Corpuscular HGB Conc 33 % (32-34); Mean Corpuscular Volume 80 fl (84-94); Platelet Count 186 K/mm3 (140-440); Red Blood Count 4.96 M/mm3 (3.65-5.03); Red Cell Distribution Width 18.5 % (13.2-15.2)
[2022-03-09 17:25] LABS: INR 0.9 (0.87-1.13)
[2022-03-09 17:26] LABS: Partial Thromboplastin Time 31.1 Sec. (24.2-36.6)
== END 2022-03-09 16:30 | disposition home or self-care (01) ==
LOC: ED 10:26
DX: I73.9 Peripheral vascular disease, unspecified (principal); I70.92 Chronic total occlusion of artery of the extremities; F17.200 Nicotine dependence, unspecified, uncomplicated; Z72.89 Other problems related to lifestyle; Z79.899 Other long term (current) drug therapy; Z79.01 Long term (current) use of anticoagulants; Z88.8 Allergy status to other drugs, medicaments and biological substances; Z88.1 Allergy status to other antibiotic agents; Z88.5 Allergy status to narcotic agent
CPT/HCPCS: 36415; 80053; 82565; 84484; 85027; 85610; 85730; 93926; 93971; 96372; 99284; J1170